=== PATIENT | female | born 1990 | race Caucasian/White ===

== ENCOUNTER 2021-04-18 13:17 | Inpatient (IN) ==
[2021-04-18] MEDS ORDERED: ONDANSETRON INJ 2 MG/ML 2 ML VIAL IV STA (13:47)
[2021-04-18] MEDS ORDERED: SODIUM CHLORIDE 0.9% 1000ML 2,000 ML IV ONE (13:47)
[2021-04-18 14:43] LABS: Basophils # (auto) 0.04 K/uL (0-0.2); Basophils % (auto) 0.4 %; Eosinophils # (auto) 0.14 K/uL (0-0.5); Eosinophils % (auto) 1.5 %; Hematocrit (blood only) 40.6 % (37-47); Hemoglobin 14.1 g/dL (12.0-16.0); Immature Granulocytes # (auto) 0.02 K/uL (0.00-0.02); Immature Granulocytes % (auto) 0.2 %; Lymphocytes % (auto) 14.8 %; Mean Corpuscular Hemoglobin 31.1 pg (25-34); Mean Corpuscular Hgb Conc 34.7 g/dL (32-36); Mean Corpuscular Volume 89.6 fL (80-100); Mean Platelet Volume 10.4 fL (7.4-10.4); Monocytes # (auto) 0.98 K/uL (0.11-0.59); Monocytes % (auto) 10.3 %; Neutrophils # (auto) 6.91 K/uL (1.4-6.5); Neutrophils % (auto) 72.8 %; Platelet Count 391 K/uL (130-400); RDW Coefficient of Variation 13.1 % (11.5-14.5); RDW Standard Deviation 42.8 fL (36.4-46.3); Red Blood Count 4.53 M/uL (4.2-5.4); White Blood Count 9.49 K/uL (4.8-10.8)
[2021-04-18 14:52] LABS: Appearance Urine Clear (Clear); Bacteria Urine Automated Negative (Negative); Blood Urine Negative (Negative); Cast Urine Automated 0 /lpf (0-5); Color Urine Dark Yellow; Epithelial Cell Urine Auto 0-5 /lpf (0-5); Glucose Urine UA Negative (Negative); Ketones Urine Trace (Negative); Leukocyte Esterase Urine Trace (Negative); Nitrite Urine Negative (Negative); Protein Urine Negative (Negative); Specific Gravity Urine 1.011 (1.000-1.030); Urobilinogen Urine Negative (Negative); WBC Urine Automated 0 /hpf (0-5)
[2021-04-18 15:03] LABS: Bilirubin Urine 3+ (Negative)
[2021-04-18 15:06] LABS: Pregnancy Test, Serum Negative (Negative)
[2021-04-18 15:26] LABS: Albumin Globulin Ratio 1.2 (0.9-2); Albumin Level 4.2 gm/dl (3.4-5.0); BUN Creatinine Ratio 7.7 (10-20); Bilirubin Direct 4.1 mg/dl (0-0.2); Bilirubin,Total 5.1 mg/dl (0.2-1); Calcium 8.8 mg/dl (8.5-10.1); Creatinine Clr Calc Pharmacy 116.1 ml/min; Est GFR (African American) 110.6 ml/min; Est GFR (Non-African American) 95.4 ml/min; Globulin 3.5 gm/dl (2.5-4.0); Potassium 3.8 mmol/L (3.5-5.1); Total Protein 7.7 gm/dl (6.4-8.2)
--- NOTE | 2021-04-18 16:18 | Ultrasound Report ---
ULTRASOUND RIGHT UPPER QUADRANT ABDOMEN CLINICAL HISTORY: Right upper quadrant abdominal pain. COMPARISON STUDY: No priors. TECHNIQUE: Real-time, grayscale, and color flow sonography of the right upper quadrant of the abdomen was performed. Images are reviewed in the transverse and longitudinal planes. FINDINGS: Liver: The liver is normal in size and echotexture. There is no intrahepatic biliary ductal dilatatio n. The main portal vein is patent. Gallbladder: There are small shadowing calcified gallstones. There is no gallbladder wall thickening or pericholecystic fluid. A sonographic Ordoñez's sign is reportedly absent. The common bile duct rolly ures up to 0.6 cm in diameter. Pancreas: Visualized portions of the pancreatic head and body are normal in appearance. The splenic v ein is patent. Right kidney: Survey images of the right kidney demonstrate normal size and echotexture. There is no hydronephrosis. Ascites: None. IMPRESSION: Cholelithiasis without sonographic evidence of acute cholecystitis. ACT 112: Negative or not required by law. Electronically signed by: Bk Pelletier M.D. 04/18/2021 4:17 PM
--- NOTE | 2021-04-18 17:10 | History & Physical Report ---
Date of Service April 18, 2021 Assessment & Plan (1) Choledocholithiasis: Plan: Choledocholithiasis - No leukocytosis - Afebrile. BP stable - Tbili 5.1, dbili 4.1 - AST 286, ALT 648, Alkphos 231 - Gallbladder US: Liver: The liver is normal in size and echotexture. There is no intrahepatic biliary ductal dilatation. The main portal vein is patent. Gallbladder: There are small shadowing calcified gallstones. There is no gallbladder wall thickening or pericholecystic fluid. A sonographic Ordoñez's sign is reportedly absent. The common bile duct measures up to 0.6 cm in diameter. Pancreas: Visualized portions of the pancreatic head and body are normal in appearance. The splenic vein is patent. - Cr wnl - Hcg negative - COVID negative - Gastro: Dr. Sanchez consulted, anticipate ERCP - Gen Surg: Ye consulted, anticipate cholecystectomy post ERCP N.p.o. with sips/chips Zofran as needed Hydromorphone scaled analgesia every 4 hours Ativan as needed every 4 hours for history of panic attacks worsened by current pain Gastrointestinal PPx ABX Cipro/Flagyl (2) Hyperbilirubinemia: Plan: 2/2 choledocholithiasis managed as otherwise noted (3) Jaundice: (4) Anxiety: Plan: Anxiety/panic attacks Patient was on p.o. Ativan as needed for panic attacks with daily sertraline Continue sertraline Ativan converted to IV (5) Endometriosis: Plan: Endometriosis Continue norethindrone 5 mg every morning Plan: DVT prophylaxis: Heparin subcu Diet: N.p.o. pending ERCP CODE STATUS: Full code Disposition: Medical/surgical History of Present Illness Chief Complaint: Right upper quadrant pain Primary Care Provider: PT DECLINED Sandra Saldivar is a 31yo F with a PMHx of anxiety/dep who presents with RUQ pain and who is admitted for management of cholelithiasis without evidence of cholecystitis. Sandra reports her pain initially began in December. Pain was intermittent and in the epigastric/right upper quadrant area and occasionally went through to her back. She was seen by gastroenterology in January and underwent an endoscopy/colonoscopy which was unremarkable. She reports her pain way for approximately 6 to 8 weeks, but returned intermittently in the last month and has been much worse since 3 days ago. She reports 3 days ago her pain jumped to an 11/10 sharp in quality with nausea and nonbloody nonbilious emesis. She denies fever, felt chills with waves of pain. She reports that she became concerned when Monday her urine changed from a normally clear color to a yellow bright orange color. She present to the hospital today when she noticed a change in her skin tone and slight yellowing in the eyes. She notes that fatty f oods have made her pain worse, she does not note remitting factors. She denies shortness of breath, chest pain, difficulty breathing. She has not noticed a change in her stool color, denies diarrhea. She has not had night sweats/chills. Medical History: Reviewed Surgical History: Reviewed Family History: Reviewed Allergies: Amoxicillin, rash Social History: Denies tobacco use. Endorses rare social alcohol use, denies recreational drug use. CODE STATUS: Full code Allergies Allergy/AdvReac Type Severity Reaction Status Date / Time amoxicillin Allergy Intermediate RASH Unverified 04/18/21 14:41 Home Medications Medication Instructions Recorded Confirmed Type clobetasol 0.05 % topical spray 1 applic TOPICAL BID PRN 04/18/21 04/18/21 History (Clobex) esomeprazole magnesium 20 mg 20 mg PO QAM 04/18/21 04/18/21 History capsule,delayed release (Nexium 24HR) lorazepam 0.5 mg tablet (Ativan) 0.5 mg SUBLINGUAL DAILY PRN 04/18/21 04/18/21 History norethindrone acetate 5 mg tablet 5 mg PO QAM 04/18/21 04/18/21 History (Aygestin) sertraline 50 mg tablet (Zoloft) 50 mg PO QAM 04/18/21 04/18/21 History Past Med/Surg History Medical History (Updated 04/18/21 @ 22:01 by Zi Pham MD) Anxiety GERD (gastroesophageal reflux disease) Family History Other Family history non-contributory Social History Smoking Status: Never smoker Feels Safe at Home: Yes Review of Systems Review of Systems: Constitutional: See HPI Eyes: Denies vision change, endorses yellowing of the eyes ENT: Denies ear pain, sore throat, sinus pain Cardiovascular: Denies Chest pain, chest pressure, palpitations, extremity swelling Respiratory: Denies shortness of breath, cough, sputum production, difficulty breathing Gastrointestinal: See HPI Genitourinary: Denies dysuria, urinary frequency Musculoskeletal: Denies acute focal weakness, muscle aches/pain, joint aches/pain Integumentary: Endorses yellowing of the skin Neurological: Denies headache, numbness, tingling, focal weakness Physical Exam Physical Exam: General: A&Ox3. NAD. Cooperative. HEENT: Atraumatic, normocephalic. Jaundice and mild scleral icterus is appreciated. Visual acuity and hearing grossly intact. EOMs intact without nystagmus. Pulm: CTAB A&P. -wheezes, -rales, -rhonchi. Symmetrical chest rise. No increase work of breathing. No respiratory distress. Cardiac: RRR, -mrg. Radial pulses intact and symmetrical. Abdominal: Tender to palpation at right upper quadrant. Abdomen otherwise nontender, soft, no rebound, nonrigid. Bowel sounds intact. Ext: RUE: 5/5 Shoulder internal rotation, external rotation, flexion, extension, abduction, adduction 5/5 Elbow flexion/extension, wrist flexion/extension 5/5 natural resource officer strength, finger flexion/extension, interosseus LUE: 5/5 Shoulder internal rotation, external rotation, flexion, extension, abduction, adduction 5/5 Elbow flexion/extension, wrist flexion/extension 5/5 natural resource officer strength, finger flexion/extension, interosseus RLE: 5/5 to hip flexion, ankle dorsiflexion/plantarflexion LLE: 5/5 to hip flexion, ankle dorsiflexion/plantarflexion SENSORY: Normal to touch in upper and lower extremities without deficit or asymmetry Results & Data Results & Data ([facility]) Vital Signs (Past 12 Hours) Vital Signs Temp Pulse Pulse Resp BP BP Pulse Ox 04/18/21 14:24 72 72 20 120/81 99 04/18/21 13:22 36.8 C 95 H 20 118/92 98 Laboratory Results Abnormal lab results 04/18/21 04/18/21 04/18/21 Range/Units 14:31 14:32 14:32 Neut # (Auto) 6.91 H (1.4-6.5) K/uL Barron # (Auto) 0.98 H (0.11-0.59) K/uL BUN 6 L (7-18) mg/dl BUN/Creatinine Ratio 7.7 L (10-20) Total Bilirubin 5.1 H (0.2-1) mg/dl Direct Bilirubin 4.1 H (0-0.2) mg/dl AST 286 H (15-37) U/L ALT 648 H (12-78) U/L Alkaline Phosphatase 231 H (45-117) U/L Urine Ketones Trace H (Negative) Urine Bilirubin 3+ H (Negative) Ur Leukocyte Esterase Trace H (Negative) Urine RBC (Auto) 5-10 H (0-4) /hpf Diagnostic Findings Gallbladder Ultrasound 04/18/21 13:45 ULTRASOUND RIGHT UPPER QUADRANT ABDOMEN CLINICAL HISTORY: Right upper quadrant abdominal pain. COMPARISON STUDY: No priors. TECHNIQUE: Real-time, grayscale, and color flow sonography of the right upper quadrant of the abdomen was performed. Images are reviewed in the transverse and longitudinal planes. FINDINGS: Liver: The liver is normal in size and echotexture. There is no intrahepatic biliary ductal dilatation. The main portal vein is patent. Gallbladder: There are small shadowing calcified gallstones. There is no gallbladder wall thickening or pericholecystic fluid. A sonographic Ordoñez's sign is reportedly absent. The common bile duct measures up to 0.6 cm in diameter. Pancreas: Visualized portions of the pancreatic head and body are normal in appearance. The splenic vein is patent. Right kidney: Survey images of the right kidney demonstrate normal size and echotexture. There is no hydronephrosis. Ascites: None. IMPRESSION: Cholelithiasis without sonographic evidence of acute cholecystitis. ACT 112: Negative or not required by law. Electronically signed by: Bk Pelletier M.D. 04/18/2021 4:17 PM Medications Administered Home Medications clobetasol 0.05 % topical spray (Clobex) 1 applic TOPICAL BID PRN 04/18/21 [History Confirmed 04/18/21] esomeprazole magnesium 20 mg capsule,delayed release (Nexium 24HR) 20 mg PO QAM 04/18/21 [History Confirmed 04/18/21] lorazepam 0.5 mg tablet (Ativan) 0.5 mg SUBLINGUAL DAILY PRN 04/18/21 [History Confirmed 04/18/21] norethindrone acetate 5 mg tablet (Aygestin) 5 mg PO QAM 04/18/21 [History Confirmed 04/18/21] sertraline 50 mg tablet (Zoloft) 50 mg PO QAM 04/18/21 [History Confirmed 04/18/21] Active Medications Acetaminophen (Acetaminophen 325 Mg Tab) 650 mg PO Q4H PRN PRN Reason: pain/fever Stop: 05/18/21 20:33 Heparin Sodium (Porcine) (Heparin Sod 5,000 Unit/0.5 Ml Vial) 5,000 units SQ Q12 SAMANTHA Stop: 05/18/21 20:59 Last Admin: 04/18/21 21:47 Dose: 5,000 units Documented by: Hydromorphone HCl (Hydromorphone Inj 0.5 Mg/0.5 Ml Syr) 0.5 mg IV Q4H PRN PRN Reason: Moderate Pain (4,5,6) on NRS Stop: 05/02/21 20:33 Hydromorphone HCl (Hydromorphone Inj 1 Mg/Ml Syringe) 1 mg IV Q4H PRN PRN Reason: Severe Pain (7,8,9,10) on NRS Stop: 05/02/21 20:33 Lorazepam (Ativan) 1 mg in 2 mls @ 2 mls/min IV Q4H PRN PRN Reason: anxiety/panic attacks Stop: 05/18/21 18:14 Last Admin: 04/18/21 18:25 Dose: 2 mls/min Documented by: Ciprofloxacin (Cipro / D5w) 400 mg in 200 mls @ 100 mls/hr IV Q12H [facility]; Protocol Stop: 04/20/21 20:59 Last Admin: 04/18/21 21:47 Dose: 100 mls/hr Documented by: Metronidazole (Flagyl) 500 mg in 100 mls @ 100 mls/hr IV Q8H SAMANTHA Stop: 04/20/21 20:59 Last Admin: 04/18/21 21:47 Dose: 100 mls/hr Documented by: Potassium Chloride 10 meq/ (Sodium Chloride) 1,005 mls @ 120 mls/hr IV .[id number] SAMANTHA Stop: 05/18/21 20:33 Norethindrone (Norethindrone 5 Mg Tab) 5 mg PO QAM [facility] Stop: 05/19/21 08:59 Ondansetron HCl (Ondansetron Inj 2 Mg/Ml 2 Ml Vial) 4 mg IV Q6H PRN PRN Reason: Nausea Stop: 05/18/21 20:33 Sertraline HCl (Sertraline Hcl 50 Mg Tablet) 50 mg PO QAM [facility] Stop: 05/19/21 08:59 PG Care Time/CCT Total # of Minutes Spent Total Time Spent with Patient: Total time spent is greater than 50% in coordination of care (as documented) at patient's floor/unit and/or counseling patient: Coding Level of Care Code 30596 Initial Inpt Care Lvl 3 Diagnoses Choledocholithiasis K80.50 Hyperbilirubinemia E80.6 Jaundice R17 Anxiety F41.9 Endometriosis N80.9
[2021-04-18] MEDS ORDERED: LORazepam 1 MG/2 ML VIAL IV PRN (18:15)
--- NOTE | 2021-04-18 19:36 | Emergency Department Note ---
Impression & Plan Choledocholithiasis, Hyperbilirubinemia, Jaundice ED Provider Note NAME: PALAK RHOADES AGE: 31 SEX: F ARRIVES VIA: Walk-In INFORMANT: Patient, ED PROVIDER(S): Christophe Anderson MD CHIEF COMPLAINT: Abdominal pain PLAN: Disposition: Admit MEDICAL DECISION MAKING: The patient is a pleasant 31-year-old woman with pmhx of GERD and Anxiety who presents to the emergency department for evaluation of worsening epigastric right upper quadrant pain that radiates to her back with associated nausea that she has had episodes of in the past and most recently in December but these episodes would be transient and not linger but over the past week her pain has initiated and persists and has gradually worsened. She reports she has followed with gastroenterology in the past for similar pain and had endoscopy and colonoscopies which were unremarkable. She did contact her GI office today and had an appointment arranged for this coming week but her pain became severe and so presented to urgent care who referred to the emergency department due to her symptoms and UA that demonstrated elevated bilirubin. Patient denies fevers, cough, congestion, chest pain, shortness of breath, diarrhea or burning with urination. On arrival the patient is uncomfortable no acute distress, afebrile stable vital signs. Her exam is notable for mild jaundice and scleral icterus which upon pointed out to the patient she did realize that her skin did indeed look yellow. She has epigastric and right upper quadrant abdominal pain with equivocal Ordoñez sign. She otherwise has no rebound or guarding. WBC, H/H and platelets within normal limits. Chemistry without metabolic aci dosis. LFTs are elevated with total bilirubin 5.1 and direct bilirubin 4.1 with AST and ALT 286 and 648, respectively. Alkaline phosphatase is 231. Lipase is not elevated. hCG was negative. UA without convincing evidence of infection but again shows 3+ bilirubin. COVID-19 PCR was negative. Formal [place] US with cholelithiasis without sonographic evidence of acute cholecystitis. CBD 6mm. I did discuss the case with GI on-call, Dr. Sanchez and confirmed we do have ERCP capability this week. Given the patient's degree of hyperbilirubinemia and gallbladder ultrasound with CBD of 6 mm no need for MRCP at this time and likely can proceed with ERCP in the morning. To be n.p.o. after midnight. Did update the patient at the bedside regarding plan for admission and she was in agreement. Case was discussed with Dr. Pham, [facility] hospitalist, who will evaluate the patient for admission. Triage Nursing notes reviewed and agree them. Prior medical records reviewed Vital Signs: reviewed and remarkable for no significant abnormalities Differential diagnosis: Appendicitis, ovarian cyst, ovarian torsion, ectopic , TOA, PID, infections, diverticulitis, UTI, obstruction, mesenteric ischemia, aortic pathology, inflammatory bowel disease, renal colic, PUD, pancreatitis, biliary pathology, hernia, volvulus, constipation, as well as other pathologies. ER treatment provided: See below. Diagnostics interpreted by me: Cardiac Monitoring: An order for continuous cardiac monitoring was placed and demonstrated NSR, 72 bpm, no ectopy. Laboratory studies: See below Imaging studies: See below Consultation(s): Dr. Sanchez, GI on-call Case was discussed with Dr. Pham, [facility] hospitalist, who will evaluate the patient for admission. HPI: The patient is a pleasant 31-year-old woman with pmhx of GERD and Anxiety who presents to the emergency department for evaluation of worsening epigastric right upper quadrant pain that radiates to her back with associated nausea that she has had episodes of in the past and most recently in December but these episodes would be transient and not linger but over the past week her pain has initiated and persists and has gradually worsened. She reports she has followed with gastroenterology in the past for similar pain and had endoscopy and colonoscopies which were unremarkable. She did contact her GI office today and had an appointment arranged for this coming week but her pain became severe and so presented to urgent care who referred to the emergency department due to her symptoms and UA that demonstrated elevated bilirubin. Patient denies fevers, cough, congestion, chest pain, shortness of breath, diarrhea or burning with urination. ROS: See above HPI for pertinent positives & negatives. A total of 10 systems reviewed and were otherwise negative. PAST MEDICAL HISTORY:See Below PAST SURGICAL HISTORY:See Below FAMILY HISTORY:See Below SOCIAL HISTORY:See Below HOME MEDICATIONS:See Below ALLERGIES:See Below VITALS:See Below PHYSICAL EXAMINATION: GENERAL: Awake, alert, uncomfortable-appearing, in no distress HENT: Normocephalic, atraumatic. Oropharynx with dry mucous membranes and otherwise unremarkable. EYES: Normal conjunctiva. Mild scleral icterus. NECK: Supple. No nuchal rigidity. FROM. No JVD. RESPIRATORY: Clear to auscultation. CARDIAC: Regular rate, normal rhythm. Extremities warm and well perfused. Pulses equal. ABDOMEN: Soft, non-distended. Moderate epigastric and right upper quadrant abdominal pain with equivocal Ordoñez sign. Otherwise, no rebound or guarding. No masses. RECTAL: Deferred. MUSCULOSKELETAL: Chest examination reveals no tenderness. The back is symmetrical on inspection without obvious abnormality. There is no CVA tenderness to palpation. No joint edema. LOWER EXTREMITIES: Calves are equal size bilaterally and non-tender. No edema. No discoloration. NEURO: Normal sensorium. No sensory or motor deficits noted. SKIN: No rash. Mild jaundice. Christophe Anderson MD Past Med/Surg History Medical History Anxiety GERD (gastroesophageal reflux disease) Family History Other Family history non-contributory Social History Smoking Status: Never smoker Feels Safe at Home: Yes Allergies Allergies Allergy/AdvReac Type Severity Reaction Status Date / Time amoxicillin Allergy Intermediate RASH Unverified 04/18/21 14:41 Home Meds Home Medications Medication Instructions Recorded Confirmed clobetasol 0.05 % topical spray 1 applic TOPICAL BID PRN 04/18/21 04/18/21 (Clobex) esomeprazole magnesium 20 mg 20 mg PO QAM 04/18/21 04/18/21 capsule,delayed release (Nexium 24HR) lorazepam 0.5 mg tablet (Ativan) 0.5 mg SUBLINGUAL DAILY PRN 04/18/21 04/18/21 norethindrone acetate 5 mg tablet 5 mg PO QAM 04/18/21 04/18/21 (Aygestin) sertraline 50 mg tablet (Zoloft) 50 mg PO QAM 04/18/21 04/18/21 Results & Data (ED) Vital Signs Vital Signs - 24 hr 04/18/21 13:22 04/18/21 14:24 04/18/21 14:29 Temperature 36.8 C Temperature Source Temporal Artery Scan Pulse Rate 95 H 72 64 Pulse Rate [Apical] 72 Pulse Rate from SpO2 Sensor 66 Respiratory Rate 20 20 18 Respiratory Effort / Characteristics Non-Labored Spontaneous Respiratory Depth Normal Respiratory Pattern Regular Blood Pressure 118/92 120/81 Blood Pressure [Right Arm] 120/81 Blood Pressure Mean 100 94 Blood Pressure Mean [Right Arm] 94 Blood Pressure Position Sitting Blood Pressure Position [Right Arm] Lying Pulse Oximetry 98 99 98 Oxygen Delivery Method Room Air Room Air Sepsis Recent Fever Within 48 Hours No Sepsis New/Unexplained Change in Mental Status No Sepsis Action Taken by Nursing No Action Required Laboratory Data Attestation: I reviewed the patient's lab results. Result diagrams: 04/18/21 14:32 04/18/21 14:32 Lab Results 04/18/21 04/18/21 04/18/21 Range/Units 14:31 14:31 14:31 WBC (4.8-10.8) K/uL RBC (4.2-5.4) M/uL Hgb (12.0-16.0) g/dL Hct (37-47) % MCV (80-100) fL MCH (25-34) pg MCHC (32-36) g/dL RDW Std Deviation (36.4-46.3) fL RDW Coeff of Beau (11.5-14.5) % Plt Count (130-400) K/uL MPV (7.4-10.4) fL Immature Gran % (Auto) % Neut % (Auto) % Lymph % (Auto) % [place] % (Auto) % Eos % (Auto) % Baso % (Auto) % Neut # (Auto) (1.4-6.5) K/uL Lymph # (Auto) (1.2-3.4) K/uL [place] # (Auto) (0.11-0.59) K/uL Eos # (Auto) (0-0.5) K/uL Baso # (Auto) (0-0.2) K/uL Immature Gran # (Auto) (0.00-0.02) K/uL Sodium (136-145) mmol/L Potassium (3.5-5.1) mmol/L Chloride (98-107) mmol/L Carbon Dioxide (21-32) mmol/L Anion Gap (3-11) BUN (7-18) mg/dl Creatinine (0.6-1.2) mg/dl Est Cr Clr Drug Dosing ml/min Est GFR ( Amer) ml/min Est GFR (Non-Af Amer) ml/min BUN/Creatinine Ratio (10-20) Glucose (70-99) mg/dl Calcium (8.5-10.1) mg/dl Total Bilirubin (0.2-1) mg/dl Direct Bilirubin (0-0.2) mg/dl AST (15-37) U/L ALT (12-78) U/L Alkaline Phosphatase (45-117) U/L Total Protein (6.4-8.2) gm/dl Albumin (3.4-5.0) gm/dl Globulin (2.5-4.0) gm/dl Albumin/Globulin Ratio (0.9-2) Lipase (73-393) U/L HCG, Qual (Negative) Urine Color Dark Yellow Urine Appearance Clear (Clear) Urine pH 6.0 (4.5-7.5) Ur Specific [place] 1.011 (1.000-1.030) Urine Protein Negative (Negative) Urine Glucose (UA) Negative (Negative) Urine Ketones Trace H (Negative) Urine Blood Negative (Negative) Urine Nitrite Negative (Negative) Urine Bilirubin 3+ H (Negative) Urine Urobilinogen Negative (Negative) Ur Leukocyte Esterase Trace H (Negative) Urine WBC (Auto) 0 (0-5) /hpf Urine RBC (Auto) 5-10 H (0-4) /hpf U Hyaline Cast (Auto) 0 (0-5) /lpf U Epithel Cells (Auto) 0-5 (0-5) /lpf Urine Bacteria (Auto) Negative (Negative) COVID-19 Eval Order Covid19 at [facility] SARS-CoV-2 (PCR) NEGATIVE (Negative) 04/18/21 04/18/21 04/18/21 Range/Units 14:32 14:32 14:32 WBC 9.49 (4.8-10.8) K/uL RBC 4.53 (4.2-5.4) M/uL Hgb 14.1 (12.0-16.0) g/dL Hct 40.6 (37-47) % MCV 89.6 (80-100) fL MCH 31.1 (25-34) pg MCHC 34.7 (32-36) g/dL RDW Std Deviation 42.8 (36.4-46.3) fL RDW Coeff of Beau 13.1 (11.5-14.5) % Plt Count 391 (130-400) K/uL MPV 10.4 (7.4-10.4) fL Immature Gran % (Auto) 0.2 % Neut % (Auto) 72.8 % Lymph % (Auto) 14.8 % [place] % (Auto) 10.3 % Eos % (Auto) 1.5 % Baso % (Auto) 0.4 % Neut # (Auto) 6.91 H (1.4-6.5) K/uL Lymph # (Auto) 1.40 (1.2-3.4) K/uL [place] # (Auto) 0.98 H (0.11-0.59) K/uL Eos # (Auto) 0.14 (0-0.5) K/uL Baso # (Auto) 0.04 (0-0.2) K/uL Immature Gran # (Auto) 0.02 (0.00-0.02) K/uL Sodium 139 (136-145) mmol/L Potassium 3.8 (3.5-5.1) mmol/L Chloride 106 (98-107) mmol/L Carbon Dioxide 23 (21-32) mmol/L Anion Gap 10.0 (3-11) BUN 6 L (7-18) mg/dl Creatinine 0.81 (0.6-1.2) mg/dl Est Cr Clr Drug Dosing 116.1 ml/min Est GFR ( Amer) 110.6 ml/min Est GFR (Non-Af Amer) 95.4 ml/min BUN/Creatinine Ratio 7.7 L (10-20) Glucose 97 (70-99) mg/dl Calcium 8.8 (8.5-10.1) mg/dl Total Bilirubin 5.1 H (0.2-1) mg/dl Direct Bilirubin 4.1 H (0-0.2) mg/dl AST 286 H (15-37) U/L ALT 648 H (12-78) U/L Alkaline Phosphatase 231 H (45-117) U/L Total Protein 7.7 (6.4-8.2) gm/dl Albumin 4.2 (3.4-5.0) gm/dl Globulin 3.5 (2.5-4.0) gm/dl Albumin/Globulin Ratio 1.2 (0.9-2) Lipase 127 (73-393) U/L HCG, Qual Negative (Negative) Urine Color Urine Appearance (Clear) Urine pH (4.5-7.5) Ur Specific [place] (1.000-1.030) Urine Protein (Negative) Urine Glucose (UA) (Negative) Urine Ketones (Negative) Urine Blood (Negative) Urine Nitrite (Negative) Urine Bilirubin (Negative) Urine Urobilinogen (Negative) Ur Leukocyte Esterase (Negative) Urine WBC (Auto) (0-5) /hpf Urine RBC (Auto) (0-4) /hpf U Hyaline Cast (Auto) (0-5) /lpf U Epithel Cells (Auto) (0-5) /lpf Urine Bacteria (Auto) (Negative) COVID-19 Eval Order SARS-CoV-2 (PCR) (Negative) Administered Medications Lorazepam (Ativan) 1 mg in 2 mls @ 2 mls/min IV Q4H PRN PRN Reason: anxiety/panic attacks Stop: 05/18/21 18:14 Last Admin: 04/18/21 18:25 Dose: 2 mls/min Documented by: [id number] Discontinued Medications Sodium Chloride (Nss 1000ml) 2,000 mls @ 999 mls/hr IV .Q2H1M ONE Stop: 04/18/21 15:47 Last Infusion: 04/18/21 16:36 Dose: 0 mls/hr Documented by: [id number] Admin: 04/18/21 14:36 Dose: 999 mls/hr Documented by: [id number] Ondansetron HCl (Ondansetron Inj 2 Mg/Ml 2 Ml Vial) 4 mg IV NOW STA Stop: 04/18/21 13:48 Last Admin: 04/18/21 14:36 Dose: 4 mg Documented by: [id number] Imaging Data Radiologist's Impression: Gallbladder Ultrasound 04/18/21 13:45 ULTRASOUND RIGHT UPPER QUADRANT ABDOMEN CLINICAL HISTORY: Right upper quadrant abdominal pain. COMPARISON STUDY: No priors. TECHNIQUE: Real-time, grayscale, and color flow sonography of the right upper quadrant of the abdomen was performed. Images are reviewed in the transverse and longitudinal planes. FINDINGS: Liver: The liver is normal in size and echotexture. There is no intrahepatic biliary ductal dilatation. The main portal vein is patent. Gallbladder: There are small shadowing calcified gallstones. There is no gallbladder wall thickening or pericholecystic fluid. A sonographic Ordoñez's sign is reportedly absent. The common bile duct measures up to 0.6 cm in diameter. Pancreas: Visualized portions of the pancreatic head and body are normal in appearance. The splenic vein is patent. Right kidney: Survey images of the right kidney demonstrate normal size and echotexture. There is no hydronephrosis. Ascites: None. IMPRESSION: Cholelithiasis without sonographic evidence of acute cholecystitis. ACT 112: Negative or not required by law. Electronically signed by: Bk Pelletier M.D. 04/18/2021 4:17 PM Discharge Plan Visit Data Chief Complaint: Abdominal Pain Stated Complaint: ABD PAIN,BACK PAIN,RUQ TENDERNESS ED Provider: Christophe Anderson Discharge Problem: Choledocholithiasis, Hyperbilirubinemia, Jaundice Patient Disposition: Admitted As Inpatient Discharge Instructions Interventions: ED Discharge Assessment Last Done: 04/18/21 20:37
[2021-04-18] MEDS ORDERED: ONDANSETRON INJ 2 MG/ML 2 ML VIAL IV PRN (20:34)
[2021-04-18] MEDS ORDERED: HYDROmorphone INJ 0.5 MG/0.5 ML SYR IV PRN (20:34)
[2021-04-18] MEDS ORDERED: ACETAMINOPHEN 325 MG TAB PO PRN (20:34)
[2021-04-18] MEDS ORDERED: HYDROmorphone INJ 1 MG/ML SYRINGE IV PRN (20:34)
[2021-04-18] MEDS: CIPROFLOXACIN / D5W 400 MG/200 ML BAG IV SCH (21:47)
[2021-04-18] MEDS: HEPARIN SOD 5,000 UNIT/0.5 ML VIAL SQ SCH (21:47)
[2021-04-18] MEDS: metroNIDAZOLE 500 MG/100 ML BAG IV SCH (21:47)
[2021-04-18] MEDS: POTASSIUM CHLORIDE 10 MEQ in SODIUM CHLORIDE 0.9% 1000ML 1,000 ML IV SCH (22:58)
[2021-04-19] MEDS: metroNIDAZOLE 500 MG/100 ML BAG IV SCH (05:56)
[2021-04-19] MEDS: POTASSIUM CHLORIDE 10 MEQ in SODIUM CHLORIDE 0.9% 1000ML 1,000 ML IV SCH ×3 (07:51→22:42)
--- NOTE | 2021-04-19 08:35 | Surgery Consultation ---
Date of Consultation April 19, 2021 Assessment & Plan (1) Hyperbilirubinemia: 31 year old female with 3 month history of intermittent abdominal pain presented to ED with severe epigastric and RUQ abdominal pain with associated nausea, vomiting, bloating, and jaundice. Ultrasound showing gallstones, no signs of acute cholecystitis, and dilated CBD at 0.6 cm. T. bili elevated at 5 and LFTS elevated likely representing choledocholithiasis. Abdomen is soft, mildly tender in RUQ and epigastrium on exam. Afebrile. Plan: Likely choledocholithiasis without cholecystitis given labs and ultrasound findings. Will await GI consult, will need ERCP Discussed cholecystectomy during admission given acute biliary obstruction. This will be determined on ERCP timing. Discussed laparoscopic approach, risks of procedure, expected recovery time and restrictions with patient. Keep npo Continue IV Fluids Pain management as needed Continue IV abx per medicine team I ( Giovanna Vega MD ) reviewed pt's H/P, las, ERCP, U/S with pt, I recommend to do laparoscopic cholecystectomy, possible open or cholangiogram, D/W benefits, risks and alternatives of the surgery, the risks - infection, bleeding, injury other organs, incisional hernia, pt understood, she agrees with surgery, I answered all questions, (2) Jaundice: Secondary to biliary obstruction (3) Cholelithiasis: No signs of acute cholecystitis on Ultrasound Plan as above Dr. Vgea has seen the patient and agrees with above. plan for laparoscopic cholecystectomy on 04/20/2021 will need to be NPO after midnight on 04/19/21 after ERCP History of Present Illness Reason for Consultation: Gallstones, Biliary obstruction Attending Physician: Elizabeth Marquez MD History of Present Illness Sandra is a 31 year-old female with history of anxiety and endometriosis who presented to ED yesterday with complaint of severe midline and RUQ abdominal pain. States she has had intermittent abdominal pain that started in December. Said pain would wake her up in the middle of the night with associated nausea, occasionally vomiting, and bloating. She had upper and lower endoscopy in January which was unremarkable. States the pain same pain woke her up evening and persisted. She noticed that her urine starting looking dark yellow and orange and presented to urgent care in which they sent her to ED for further evaluation. She had an ultrasound which showed gallstones with dilated CBD at 0.6 cm however no pericholecystic fluid or gallbladder wall thickening. Her labs showed no leukocytosis however t. bili elevated at 5 and lfts elevated. She states her pain is much improved at this time. She has not had nausea or vomiting since admission. Allergies Allergy/AdvReac Type Severity Reaction Status Date / Time amoxicillin Allergy Intermediate RASH Unverified 04/18/21 14:41 Home Medications Medication Instructions Recorded Confirmed Type clobetasol 0.05 % topical spray 1 applic TOPICAL BID PRN 04/18/21 04/18/21 History (Clobex) esomeprazole magnesium 20 mg 20 mg PO QAM 04/18/21 04/18/21 History capsule,delayed release (Nexium 24HR) lorazepam 0.5 mg tablet (Ativan) 0.5 mg SUBLINGUAL DAILY PRN 04/18/21 04/18/21 History norethindrone acetate 5 mg tablet 5 mg PO QAM 04/18/21 04/18/21 History (Aygestin) sertraline 50 mg tablet (Zoloft) 50 mg PO QAM 04/18/21 04/18/21 History Patient History Medical History Anxiety GERD (gastroesophageal reflux disease) Family History Other Family history non-contributory Social History Smoking Status: Never smoker Do You Dip or Chew Tobacco: No; Hx Alcohol Use: No Hx Substance Use: No Preferred Language: Bahamian Communication Ability: Effective Drapery Examiner Required: No Beliefs That Will Affect Care: None Current Living Situation: Spouse Other Information That Helps Us Care for You: No Feels Safe at Home: Yes Safety Concerns: Feels Safe At This Time Assistive Devices: Glasses Physical Exam Constitutional: WD/WN, vitals as above Eyes: mildly icteric sclerae Respiratory: normal respiratory effort, lungs clear to auscultation Cardiovascular: RRR, no murmur, no edema Gastrointestinal (Abdomen): Inspection/Auscultation: abdomen normal to inspection and normal bowel sounds; abdomen not distended Percussion/Pal pation: + abdomen tender (mild in RUQ and epigastrium) and abdomen soft; no guarding and abdomen not rigid Skin: no rashes, warm and dry Psychiatric: A+Ox3, euthymic affect Results & Data ([facility]) Vital Signs (Past 12 Hours) Vital Signs Temp Pulse Resp BP Pulse Ox 04/19/21 07:40 37.4 C 66 18 115/70 96 04/18/21 22:19 37.2 C 71 16 115/77 97 Laboratory Results 04/18/21 04/18/21 04/18/21 Range/Units 14:32 14:32 14:32 WBC 9.49 (4.8-10.8) K/uL RBC 4.53 (4.2-5.4) M/uL Hgb 14.1 (12.0-16.0) g/dL Hct 40.6 (37-47) % MCV 89.6 (80-100) fL MCH 31.1 (25-34) pg MCHC 34.7 (32-36) g/dL RDW Std Deviation 42.8 (36.4-46.3) fL RDW Coeff of Beau 13.1 (11.5-14.5) % Plt Count 391 (130-400) K/uL MPV 10.4 (7.4-10.4) fL Immature Gran % (Auto) 0.2 % Neut % (Auto) 72.8 % Lymph % (Auto) 14.8 % [place] % (Auto) 10.3 % Eos % (Auto) 1.5 % Baso % (Auto) 0.4 % Neut # (Auto) 6.91 H (1.4-6.5) K/uL Lymph # (Auto) 1.40 (1.2-3.4) K/uL [place] # (Auto) 0.98 H (0.11-0.59) K/uL Eos # (Auto) 0.14 (0-0.5) K/uL Baso # (Auto) 0.04 (0-0.2) K/uL Immature Gran # (Auto) 0.02 (0.00-0.02) K/uL Sodium 139 (136-145) mmol/L Potassium 3.8 (3.5-5.1) mmol/L Chloride 106 (98-107) mmol/L Carbon Dioxide 23 (21-32) mmol/L Anion Gap 10.0 (3-11) BUN 6 L (7-18) mg/dl Creatinine 0.81 (0.6-1.2) mg/dl Est Cr Clr Drug Dosing 116.1 ml/min Est GFR ( Amer) 110.6 ml/min Est GFR (Non-Af Amer) 95.4 ml/min BUN/Creatinine Ratio 7.7 L (10-20) Glucose 97 (70-99) mg/dl Calcium 8.8 (8.5-10.1) mg/dl Total Bilirubin 5.1 H (0.2-1) mg/dl Direct Bilirubin 4.1 H (0-0.2) mg/dl AST 286 H (15-37) U/L ALT 648 H (12-78) U/L Alkaline Phosphatase 231 H (45-117) U/L Total Protein 7.7 (6.4-8.2) gm/dl Albumin 4.2 (3.4-5.0) gm/dl Globulin 3.5 (2.5-4.0) gm/dl Albumin/Globulin Ratio 1.2 (0.9-2) Lipase 127 (73-393) U/L HCG, Qual Negative (Negative) Urine Color Urine Appearance (Clear) Urine pH (4.5-7.5) Ur Specific [place] (1.000-1.030) Urine Protein (Negative) Urine Glucose (UA) (Negative) Urine Ketones (Negative) Urine Blood (Negative) Urine Nitrite (Negative) Urine Bilirubin (Negative) Urine Urobilinogen (Negative) Ur Leukocyte Esterase (Negative) Urine WBC (Auto) (0-5) /hpf Urine RBC (Auto) (0-4) /hpf U Hyaline Cast (Auto) (0-5) /lpf U Epithel Cells (Auto) (0-5) /lpf Urine Bacteria (Auto) (Negative) COVID-19 Eval Order SARS-CoV-2 (PCR) (Negative) 04/18/21 04/18/21 04/18/21 Range/Units 14:31 14:31 14:31 WBC (4.8-10.8) K/uL RBC (4.2-5.4) M/uL Hgb (12.0-16.0) g/dL Hct (37-47) % MCV (80-100) fL MCH (25-34) pg MCHC (32-36) g/dL RDW Std Deviation (36.4-46.3) fL RDW Coeff of Beau (11.5-14.5) % Plt Count (130-400) K/uL MPV (7.4-10.4) fL Immature Gran % (Auto) % Neut % (Auto) % Lymph % (Auto) % [place] % (Auto) % Eos % (Auto) % Baso % (Auto) % Neut # (Auto) (1.4-6.5) K/uL Lymph # (Auto) (1.2-3.4) K/uL [place] # (Auto) (0.11-0.59) K/uL Eos # (Auto) (0-0.5) K/uL Baso # (Auto) (0-0.2) K/uL Immature Gran # (Auto) (0.00-0.02) K/uL Sodium (136-145) mmol/L Potassium (3.5-5.1) mmol/L Chloride (98-107) mmol/L Carbon Dioxide (21-32) mmol/L Anion Gap (3-11) BUN (7-18) mg/dl Creatinine (0.6-1.2) mg/dl Est Cr Clr Drug Dosing ml/min Est GFR ( Amer) ml/min Est GFR (Non-Af Amer) ml/min BUN/Creatinine Ratio (10-20) Glucose (70-99) mg/dl Calcium (8.5-10.1) mg/dl Total Bilirubin (0.2-1) mg/dl Direct Bilirubin (0-0.2) mg/dl AST (15-37) U/L ALT (12-78) U/L Alkaline Phosphatase (45-117) U/L Total Protein (6.4-8.2) gm/dl Albumin (3.4-5.0) gm/dl Globulin (2.5-4.0) gm/dl Albumin/Globulin Ratio (0.9-2) Lipase (73-393) U/L HCG, Qual (Negative) Urine Color Dark Yellow Urine Appearance Clear (Clear) Urine pH 6.0 (4.5-7.5) Ur Specific [place] 1.011 (1.000-1.030) Urine Protein Negative (Negative) Urine Glucose (UA) Negative (Negative) Urine Ketones Trace H (Negative) Urine Blood Negative (Negative) Urine Nitrite Negative (Negative) Urine Bilirubin 3+ H (Negative) Urine Urobilinogen Negative (Negative) Ur Leukocyte Esterase Trace H (Negative) Urine WBC (Auto) 0 (0-5) /hpf Urine RBC (Auto) 5-10 H (0-4) /hpf U Hyaline Cast (Auto) 0 (0-5) /lpf U Epithel Cells (Auto) 0-5 (0-5) /lpf Urine Bacteria (Auto) Negative (Negative) COVID-19 Eval Order Covid19 at [facility] SARS-CoV-2 (PCR) NEGATIVE (Negative) Diagnostic Findings ULTRASOUND RIGHT UPPER QUADRANT ABDOMEN CLINICAL HISTORY: Right upper quadrant abdominal pain. COMPARISON STUDY: No priors. TECHNIQUE: Real-time, grayscale, and color flow sonography of the right upper quadrant of the abdomen was performed. Images are reviewed in the transverse and longitudinal planes. FINDINGS: Liver: The liver is normal in size and echotexture. There is no intrahepatic biliary ductal dilatation. The main portal vein is patent. Gallbladder: There are small shadowing calcified gallstones. There is no gallbladder wall thickening or pericholecystic fluid. A sonographic Ordoñez's sign is reportedly absent. The common bile duct measures up to 0.6 cm in diameter. Pancreas: Visualized portions of the pancreatic head and body are normal in appearance. The splenic vein is patent. Right kidney: Survey images of the right kidney demonstrate normal size and echotexture. There is no hydronephrosis. Ascites: None. IMPRESSION: Cholelithiasis without sonographic evidence of acute cholecystitis.
[2021-04-19 08:43] LABS: Basophils # (auto) 0.03 K/uL (0-0.2); Basophils % (auto) 0.4 %; Eosinophils # (auto) 0.14 K/uL (0-0.5); Hemoglobin 12.9 g/dL (12.0-16.0); Immature Granulocytes # (auto) 0.01 K/uL (0.00-0.02); Immature Granulocytes % (auto) 0.1 %; Mean Corpuscular Hemoglobin 30.5 pg (25-34); Mean Corpuscular Hgb Conc 33.9 g/dL (32-36); Mean Corpuscular Volume 89.8 fL (80-100); Mean Platelet Volume 10.1 fL (7.4-10.4); Monocytes # (auto) 0.68 K/uL (0.11-0.59); Monocytes % (auto) 9.8 %; Neutrophils # (auto) 4.25 K/uL (1.4-6.5); Neutrophils % (auto) 61.7 %; Platelet Count 333 K/uL (130-400); RDW Coefficient of Variation 13.3 % (11.5-14.5); RDW Standard Deviation 43.8 fL (36.4-46.3); Red Blood Count 4.23 M/uL (4.2-5.4); White Blood Count 6.91 K/uL (4.8-10.8)
--- NOTE | 2021-04-19 09:07 | Gastrointestinal Consultation ---
Date of Consultation April 19, 2021 Assessment & Plan (1) Cholelithiasis: 31 year old female with episodic RUQ pain, nausea/vomiting most recent onset associated with scleral icterus, jaundice and dark urine, admitted w/ transaminitis, gallstones and CBD 6 mm concern for choledocho lithiasis NPO Plan for ERCP today with Dr. Merlyn TATE per general surgery Continue fluid, analgesia and antietmics PRN (2) Jaundice: History of Present Illness Reason for Consultation: ERCP Requesting Physician: Jimmy Attending Physician: Elizabeth Marquez MD History of Present Illness 31 year old female with anxiety who presents with abdominal pain - GI asked to evaluate for suspected retained biliary stones. Pt was seen and evaluated,chart reviewed. Notes symptoms in December, RUQ pain, nausea. Saw [facility]. Had EGD/Colonoscopy which she reports was normal. Notes she had symptoms for about a few weeks then they spontaneously resolved. Symptoms returned , worse than prior. Notes epigastric abd pain which radiates to her back associted with nausea and vomiting. Yeserday noted icterus and dark urine. No fever, chills, CP, SOb ABD US w/ gallstones and CBD 6 mm Allergies Allergy/AdvReac Type Severity Reaction Status Date / Time amoxicillin Allergy Intermediate RASH Unverified 04/18/21 14:41 Home Medications Medication Instructions Recorded Confirmed Type clobetasol 0.05 % topical spray 1 applic TOPICAL BID PRN 04/18/21 04/18/21 History (Clobex) esomeprazole magnesium 20 mg 20 mg PO QAM 04/18/21 04/18/21 History capsule,delayed release (Nexium 24HR) lorazepam 0.5 mg tablet (Ativan) 0.5 mg SUBLINGUAL DAILY PRN 04/18/21 04/18/21 History norethindrone acetate 5 mg tablet 5 mg PO QAM 04/18/21 04/18/21 History (Aygestin) sertraline 50 mg tablet (Zoloft) 50 mg PO QAM 04/18/21 04/18/21 History Patient History Medical History (Updated 04/19/21 @ 08:39 by Sandra Childress PA-C) Anxiety GERD (gastroesophageal reflux disease) Family History Other Family history non-contributory Social History Smoking Status: Never smoker Hx Alcohol Use: No Hx Substance Use: No Preferred Language: Uzbek Communication Ability: Effective Carriage Setter Required: No Beliefs That Will Affect Care: None Current Living Situation: Spouse Other Information That Helps Us Care for You: No Feels Safe at Home: Yes Safety Concerns: Feels Safe At This Time Assistive Devices: Glasses Review of Systems Review of Systems: All systems reviewed & are unremarkable except as noted in HPI & below Physical Exam Constitutional: WD/WN, vitals as above Eyes: + scleral icterus Respiratory: normal respiratory effort, lungs clear to auscultation Cardiovascular: RRR, no murmur, no edema Gastrointestinal (Abdomen): Inspection/Auscultation: abdomen normal to inspection and normal bowel sounds Percussion/Palpation: + abdomen tender and abdomen soft; no guarding, abdomen not rigid and no abdominal mass Skin: no rashes, warm and dry Results & Data ([facility]) Vital Signs (Past 12 Hours) Vital Signs Temp Pulse Resp BP Pulse Ox 04/19/21 07:40 37.4 C 66 18 115/70 96 04/18/21 22:19 37.2 C 71 16 115/77 97 Laboratory Results 04/19/21 04/19/21 04/18/21 Range/Units 08:32 08:32 14:32 WBC 6.91 (4.8-10.8) K/uL RBC 4.23 (4.2-5.4) M/uL Hgb 12.9 (12.0-16.0) g/dL Hct 38.0 (37-47) % MCV 89.8 (80-100) fL MCH 30.5 (25-34) pg MCHC 33.9 (32-36) g/dL RDW Std Deviation 43.8 (36.4-46.3) fL RDW Coeff of Beau 13.3 (11.5-14.5) % Plt Count 333 (130-400) K/uL MPV 10.1 (7.4-10.4) fL Immature Gran % (Auto) 0.1 % Neut % (Auto) 61.7 % Lymph % (Auto) 26.0 % Person % (Auto) 9.8 % Eos % (Auto) 2.0 % Baso % (Auto) 0.4 % Neut # (Auto) 4.25 (1.4-6.5) K/uL Lymph # (Auto) 1.80 (1.2-3.4) K/uL Person # (Auto) 0.68 H (0.11-0.59) K/uL Eos # (Auto) 0.14 (0-0.5) K/uL Baso # (Auto) 0.03 (0-0.2) K/uL Immature Gran # (Auto) 0.01 (0.00-0.02) K/uL Sodium Pending (136-145) mmol/L Potassium Pending (3.5-5.1) mmol/L Chloride Pending (98-107) mmol/L Carbon Dioxide Pending (21-32) mmol/L Anion Gap Pending (3-11) BUN Pending (7-18) mg/dl Creatinine Pending (0.6-1.2) mg/dl Est Cr Clr Drug Dosing Pending ml/min Est GFR ( Amer) Pending ml/min Est GFR (Non-Af Amer) Pending ml/min BUN/Creatinine Ratio Pending (10-20) Glucose Pending (70-99) mg/dl Calcium Pending (8.5-10.1) mg/dl Total Bilirubin Pending (0.2-1) mg/dl Direct Bilirubin (0-0.2) mg/dl AST Pending (15-37) U/L ALT Pending (12-78) U/L Alkaline Phosphatase Pending (45-117) U/L Total Protein Pending (6.4-8.2) gm/dl Albumin Pending (3.4-5.0) gm/dl Globulin Pending (2.5-4.0) gm/dl Albumin/Globulin Ratio Pending (0.9-2) Lipase (73-393) U/L HCG, Qual Negative (Negative) Urine Color Urine Appearance (Clear) Urine pH (4.5-7.5) Ur Specific [place] (1.000-1.030) Urine Protein (Negative) Urine Glucose (UA) (Negative) Urine Ketones (Negative) Urine Blood (Negative) Urine Nitrite (Negative) Urine Bilirubin (Negative) Urine Urobilinogen (Negative) Ur Leukocyte Esterase (Negative) Urine WBC (Auto) (0-5) /hpf Urine RBC (Auto) (0-4) /hpf U Hyaline Cast (Auto) (0-5) /lpf U Epithel Cells (Auto) (0-5) /lpf Urine Bacteria (Auto) (Negative) COVID-19 Eval Order SARS-CoV-2 (PCR) (Negative) 04/18/21 04/18/21 04/18/21 Range/Units 14:32 14:32 14:31 WBC 9.49 (4.8-10.8) K/uL RBC 4.53 (4.2-5.4) M/uL Hgb 14.1 (12.0-16.0) g/dL Hct 40.6 (37-47) % MCV 89.6 (80-100) fL MCH 31.1 (25-34) pg MCHC 34.7 (32-36) g/dL RDW Std Deviation 42.8 (36.4-46.3) fL RDW Coeff of Beau 13.1 (11.5-14.5) % Plt Count 391 (130-400) K/uL MPV 10.4 (7.4-10.4) fL Immature Gran % (Auto) 0.2 % Neut % (Auto) 72.8 % Lymph % (Auto) 14.8 % Person % (Auto) 10.3 % Eos % (Auto) 1.5 % Baso % (Auto) 0.4 % Neut # (Auto) 6.91 H (1.4-6.5) K/uL Lymph # (Auto) 1.40 (1.2-3.4) K/uL Person # (Auto) 0.98 H (0.11-0.59) K/uL Eos # (Auto) 0.14 (0-0.5) K/uL Baso # (Auto) 0.04 (0-0.2) K/uL Immature Gran # (Auto) 0.02 (0.00-0.02) K/uL Sodium 139 (136-145) mmol/L Potassium 3.8 (3.5-5.1) mmol/L Chloride 106 (98-107) mmol/L Carbon Dioxide 23 (21-32) mmol/L Anion Gap 10.0 (3-11) BUN 6 L (7-18) mg/dl Creatinine 0.81 (0.6-1.2) mg/dl Est Cr Clr Drug Dosing 116.1 ml/min Est GFR ( Amer) 110.6 ml/min Est GFR (Non-Af Amer) 95.4 ml/min BUN/Creatinine Ratio 7.7 L (10-20) Glucose 97 (70-99) mg/dl Calcium 8.8 (8.5-10.1) mg/dl Total Bilirubin 5.1 H (0.2-1) mg/dl Direct Bilirubin 4.1 H (0-0.2) mg/dl AST 286 H (15-37) U/L ALT 648 H (12-78) U/L Alkaline Phosphatase 231 H (45-117) U/L Total Protein 7.7 (6.4-8.2) gm/dl Albumin 4.2 (3.4-5.0) gm/dl Globulin 3.5 (2.5-4.0) gm/dl Albumin/Globulin Ratio 1.2 (0.9-2) Lipase 127 (73-393) U/L HCG, Qual (Negative) Urine Color Urine Appearance (Clear) Urine pH (4.5-7.5) Ur Specific [place] (1.000-1.030) Urine Protein (Negative) Urine Glucose (UA) (Negative) Urine Ketones (Negative) Urine Blood (Negative) Urine Nitrite (Negative) Urine Bilirubin (Negative) Urine Urobilinogen (Negative) Ur Leukocyte Esterase (Negative) Urine WBC (Auto) (0-5) /hpf Urine RBC (Auto) (0-4) /hpf U Hyaline Cast (Auto) (0-5) /lpf U Epithel Cells (Auto) (0-5) /lpf Urine Bacteria (Auto) (Negative) COVID-19 Eval Order SARS-CoV-2 (PCR) NEGATIVE (Negative) 04/18/21 04/18/21 Range/Units 14:31 14:31 WBC (4.8-10.8) K/uL RBC (4.2-5.4) M/uL Hgb (12.0-16.0) g/dL Hct (37-47) % MCV (80-100) fL MCH (25-34) pg MCHC (32-36) g/dL RDW Std Deviation (36.4-46.3) fL RDW Coeff of Beau (11.5-14.5) % Plt Count (130-400) K/uL MPV (7.4-10.4) fL Immature Gran % (Auto) % Neut % (Auto) % Lymph % (Auto) % Person % (Auto) % Eos % (Auto) % Baso % (Auto) % Neut # (Auto) (1.4-6.5) K/uL Lymph # (Auto) (1.2-3.4) K/uL Person # (Auto) (0.11-0.59) K/uL Eos # (Auto) (0-0.5) K/uL Baso # (Auto) (0-0.2) K/uL Immature Gran # (Auto) (0.00-0.02) K/uL Sodium (136-145) mmol/L Potassium (3.5-5.1) mmol/L Chloride (98-107) mmol/L Carbon Dioxide (21-32) mmol/L Anion Gap (3-11) BUN (7-18) mg/dl Creatinine (0.6-1.2) mg/dl Est Cr Clr Drug Dosing ml/min Est GFR ( Amer) ml/min Est GFR (Non-Af Amer) ml/min BUN/Creatinine Ratio (10-20) Glucose (70-99) mg/dl Calcium (8.5-10.1) mg/dl Total Bilirubin (0.2-1) mg/dl Direct Bilirubin (0-0.2) mg/dl AST (15-37) U/L ALT (12-78) U/L Alkaline Phosphatase (45-117) U/L Total Protein (6.4-8.2) gm/dl Albumin (3.4-5.0) gm/dl Globulin (2.5-4.0) gm/dl Albumin/Globulin Ratio (0.9-2) Lipase (73-393) U/L HCG, Qual (Negative) Urine Color Dark Yellow Urine Appearance Clear (Clear) Urine pH 6.0 (4.5-7.5) Ur Specific [place] 1.011 (1.000-1.030) Urine Protein Negative (Negative) Urine Glucose (UA) Negative (Negative) Urine Ketones Trace H (Negative) Urine Blood Negative (Negative) Urine Nitrite Negative (Negative) Urine Bilirubin 3+ H (Negative) Urine Urobilinogen Negative (Negative) Ur Leukocyte Esterase Trace H (Negative) Urine WBC (Auto) 0 (0-5) /hpf Urine RBC (Auto) 5-10 H (0-4) /hpf U Hyaline Cast (Auto) 0 (0-5) /lpf U Epithel Cells (Auto) 0-5 (0-5) /lpf Urine Bacteria (Auto) Negative (Negative) COVID-19 Eval Order Covid19 at [facility] SARS-CoV-2 (PCR) (Negative)
[2021-04-19 09:17] LABS: Albumin Level 3.7 gm/dl (3.4-5.0); BUN Creatinine Ratio 8.7 (10-20); Calcium 9.1 mg/dl (8.5-10.1); Creatinine Clr Calc Pharmacy 129.3 ml/min; Est GFR (African American) 125.4 ml/min; Est GFR (Non-African American) 108.2 ml/min; Potassium 4.2 mmol/L (3.5-5.1)
[2021-04-19 09:26] LABS: Albumin Globulin Ratio 1.1 (0.9-2); Globulin 3.4 gm/dl (2.5-4.0); Total Protein 7.1 gm/dl (6.4-8.2)
[2021-04-19] MEDS: HEPARIN SOD 5,000 UNIT/0.5 ML VIAL SQ SCH (10:20)
[2021-04-19] MEDS: SERTRALINE HCL 50 MG TABLET PO SCH (10:30)
[2021-04-19] MEDS: NORETHINDRONE 5 MG TAB PO SCH (10:30)
[2021-04-19] MEDS: CIPROFLOXACIN / D5W 400 MG/200 ML BAG IV SCH (10:30)
[2021-04-19] MEDS: ERTAPENEM SODIUM 1,000 MG in SODIUM CHLORIDE 0.9% 50 ML IV SCH (12:48)
[2021-04-19] MEDS: PANTOprazole 40 MG in SYRINGE 0 ML IV SCH (12:48)
[2021-04-19] MEDS ORDERED: MIDAZOLAM HCL 1 MG/ML 2ML VIAL ONE (13:40)
[2021-04-19] MEDS ORDERED: LIDOCAINE 2% 2 ML VIAL/AMP(20MG/ML) INFIL ONE (13:40)
[2021-04-19] MEDS ORDERED: ONDANSETRON INJ 2 MG/ML 2 ML VIAL ONE (13:40)
[2021-04-19] MEDS ORDERED: PROPOFOL IV EMULSION 10 MG/ML 20 ML VIAL IV ONE (13:40)
[2021-04-19] MEDS ORDERED: fentaNYL citrate 100 MCG/2 ML VIAL ONE (13:40)
--- NOTE | 2021-04-19 14:16 | Hospitalist Progress Note ---
Date of Service April 19, 2021 Assessment & Plan (1) Choledocholithiasis: Plan: Choledocholithiasis-with ongoing symptomatic cholelithiasis for 2 months, but presented with jaundice - No leukocytosis - Afebrile. BP stable - Tbili 5.1, dbili 4.1 and now trending downward - AST 286, ALT 648, Alk phos 231 and also now trending downward - Gallbladder US: Liver: The liver is normal in size and echotexture. There is no intrahepatic biliary ductal dilatation. The main portal vein is patent. Gallbladder: There are small shadowing calcified gallstones. There is no gallbladder wall thickening or pericholecystic fluid. A sonographic Ordoñez's sign is reportedly absent. The common bile duct measures up to 0.6 cm in diameter. Pancreas: Visualized portions of the pancreatic head and body are normal in appearance. The splenic vein is patent. - Cr wnl - Hcg negative - COVID negative - Gastro: plan for ERCP 04/19 - Gen Surg consulted, anticipate cholecystectomy post ERCP-planned for 04/20 N.p.o. with sips/chips for now but may have clears likely after ERCP later and then NPO after midnight for chloé tomorrow Zofran as needed Hydromorphone scaled analgesia every 4 hours Ativan as needed every 4 hours for history of panic attacks worsened by current pain Gastrointestinal PPx ABX -change to ertapenem due to pt request for fear of cipro SE -follow LFTs in AM and to resolution as outpt in 2 weeks -continue maintenance IVFs (2) Hyperbilirubinemia: Plan: 2/2 choledocholithiasis managed as otherwise noted-improving (3) Jaundice: Plan: as above (4) Anxiety: Plan: Anxiety/panic attacks Patient was on p.o. Ativan as needed for panic attacks with daily sertraline Continue sertraline Ativan converted to IV while npo (5) Endometriosis: Plan: Endometriosis Continue norethindrone 5 mg every morning (6) GERD (gastroesophageal reflux disease): Plan: hold hompo PPI and give IV Protonix 40mg once daily while NPO Plan: DVT prophylaxis: Heparin subcu Diet: N.p.o. pending ERCP CODE STATUS: Full code Disposition: Medical/surgical-continued stay Admission and Anticipated Discharge Date Admission Date: April 18, 2021 Subjective Pt says pain has improved since admission. No BM in many days which is normal for her. Was concerned about being on Cipro as she had a colleague recently get partially paralyzed after receiving Cipro for a UTI. Changed to ertapenem Discussed her care with Surgery. No CP, SOB. Reports one of her LFts was elevated in January and questions if this could be related to her norethindrone. Review of Systems Review of Systems: All systems reviewed & are unremarkable except as noted in HPI & below Physical Exam Constitutional: WD/WN, vitals as above Eyes: + anicteric sclerae Neck: trachea midline, no thyromegaly Respiratory: normal respiratory effort, lungs clear to auscultation Cardiovascular: RRR, no murmur, no edema Chest (Breasts): Chest: normal inspection of chest Gastrointestinal (Abdomen): normal bowel sounds, soft, nontender, no hep atosplenomegaly Musculoskeletal: Extremities: extremities normal to inspection; no cyanosis and no clubbing Skin: no rashes, warm and dry Neurologic: moves all extremities and awake; no focal motor deficits Psychiatric: A+Ox3, euthymic affect Lymphatic: no lymphedema Results & Data Results & Data ([facility]) Vital Signs (Past 12 Hours) Vital Signs Temp Pulse Resp BP Pulse Ox 04/19/21 07:40 37.4 C 66 18 115/70 96 Laboratory Results 04/19/21 04/19/21 04/18/21 Range/Units 08:32 08:32 14:32 WBC 6.91 (4.8-10.8) K/uL RBC 4.23 (4.2-5.4) M/uL Hgb 12.9 (12.0-16.0) g/dL Hct 38.0 (37-47) % MCV 89.8 (80-100) fL MCH 30.5 (25-34) pg MCHC 33.9 (32-36) g/dL RDW Std Deviation 43.8 (36.4-46.3) fL RDW Coeff of Beau 13.3 (11.5-14.5) % Plt Count 333 (130-400) K/uL MPV 10.1 (7.4-10.4) fL Immature Gran % (Auto) 0.1 % Neut % (Auto) 61.7 % Lymph % (Auto) 26.0 % [place] % (Auto) 9.8 % Eos % (Auto) 2.0 % Baso % (Auto) 0.4 % Neut # (Auto) 4.25 (1.4-6.5) K/uL Lymph # (Auto) 1.80 (1.2-3.4) K/uL [place] # (Auto) 0.68 H (0.11-0.59) K/uL Eos # (Auto) 0.14 (0-0.5) K/uL Baso # (Auto) 0.03 (0-0.2) K/uL Immature Gran # (Auto) 0.01 (0.00-0.02) K/uL Sodium 141 (136-145) mmol/L Potassium 4.2 (3.5-5.1) mmol/L Chloride 110 H (98-107) mmol/L Carbon Dioxide 21 (21-32) mmol/L Anion Gap 10.0 (3-11) BUN 6 L (7-18) mg/dl Creatinine 0.73 (0.6-1.2) mg/dl Est Cr Clr Drug Dosing 129.3 ml/min Est GFR ( Amer) 125.4 ml/min Est GFR (Non-Af Amer) 108.2 ml/min BUN/Creatinine Ratio 8.7 L (10-20) Glucose 85 (70-99) mg/dl Calcium 9.1 (8.5-10.1) mg/dl Total Bilirubin 3.0 H (0.2-1) mg/dl Direct Bilirubin (0-0.2) mg/dl AST 178 H (15-37) U/L ALT 526 H (12-78) U/L Alkaline Phosphatase 218 H (45-117) U/L Total Protein 7.1 (6.4-8.2) gm/dl Albumin 3.7 (3.4-5.0) gm/dl Globulin 3.4 (2.5-4.0) gm/dl Albumin/Globulin Ratio 1.1 (0.9-2) Lipase (73-393) U/L HCG, Qual Negative (Negative) Urine Color Urine Appearance (Clear) Urine pH (4.5-7.5) Ur Specific [place] (1.000-1.030) Urine Protein (Negative) Urine Glucose (UA) (Negative) Urine Ketones (Negative) Urine Blood (Negative) Urine Nitrite (Negative) Urine Bilirubin (Negative) Urine Urobilinogen (Negative) Ur Leukocyte Esterase (Negative) Urine WBC (Auto) (0-5) /hpf Urine RBC (Auto) (0-4) /hpf U Hyaline Cast (Auto) (0-5) /lpf U Epithel Cells (Auto) (0-5) /lpf Urine Bacteria (Auto) (Negative) COVID-19 Eval Order SARS-CoV-2 (PCR) (Negative) 04/18/21 04/18/21 04/18/21 Range/Units 14:32 14:32 14:31 WBC 9.49 (4.8-10.8) K/uL RBC 4.53 (4.2-5.4) M/uL Hgb 14.1 (12.0-16.0) g/dL Hct 40.6 (37-47) % MCV 89.6 (80-100) fL MCH 31.1 (25-34) pg MCHC 34.7 (32-36) g/dL RDW Std Deviation 42.8 (36.4-46.3) fL RDW Coeff of Beau 13.1 (11.5-14.5) % Plt Count 391 (130-400) K/uL MPV 10.4 (7.4-10.4) fL Immature Gran % (Auto) 0.2 % Neut % (Auto) 72.8 % Lymph % (Auto) 14.8 % [place] % (Auto) 10.3 % Eos % (Auto) 1.5 % Baso % (Auto) 0.4 % Neut # (Auto) 6.91 H (1.4-6.5) K/uL Lymph # (Auto) 1.40 (1.2-3.4) K/uL [place] # (Auto) 0.98 H (0.11-0.59) K/uL Eos # (Auto) 0.14 (0-0.5) K/uL Baso # (Auto) 0.04 (0-0.2) K/uL Immature Gran # (Auto) 0.02 (0.00-0.02) K/uL Sodium 139 (136-145) mmol/L Potassium 3.8 (3.5-5.1) mmol/L Chloride 106 (98-107) mmol/L Carbon Dioxide 23 (21-32) mmol/L Anion Gap 10.0 (3-11) BUN 6 L (7-18) mg/dl Creatinine 0.81 (0.6-1.2) mg/dl Est Cr Clr Drug Dosing 116.1 ml/min Est GFR ( Amer) 110.6 ml/min Est GFR (Non-Af Amer) 95.4 ml/min BUN/Creatinine Ratio 7.7 L (10-20) Glucose 97 (70-99) mg/dl Calcium 8.8 (8.5-10.1) mg/dl Total Bilirubin 5.1 H (0.2-1) mg/dl Direct Bilirubin 4.1 H (0-0.2) mg/dl AST 286 H (15-37) U/L ALT 648 H (12-78) U/L Alkaline Phosphatase 231 H (45-117) U/L Total Protein 7.7 (6.4-8.2) gm/dl Albumin 4.2 (3.4-5.0) gm/dl Globulin 3.5 (2.5-4.0) gm/dl Albumin/Globulin Ratio 1.2 (0.9-2) Lipase 127 (73-393) U/L HCG, Qual (Negative) Urine Color Urine Appearance (Clear) Urine pH (4.5-7.5) Ur Specific [place] (1.000-1.030) Urine Protein (Negative) Urine Glucose (UA) (Negative) Urine Ketones (Negative) Urine Blood (Negative) Urine Nitrite (Negative) Urine Bilirubin (Negative) Urine Urobilinogen (Negative) Ur Leukocyte Esterase (Negative) Urine WBC (Auto) (0-5) /hpf Urine RBC (Auto) (0-4) /hpf U Hyaline Cast (Auto) (0-5) /lpf U Epithel Cells (Auto) (0-5) /lpf Urine Bacteria (Auto) (Negative) COVID-19 Eval Order SARS-CoV-2 (PCR) NEGATIVE (Negative) 04/18/21 04/18/21 Range/Units 14:31 14:31 WBC (4.8-10.8) K/uL RBC (4.2-5.4) M/uL Hgb (12.0-16.0) g/dL Hct (37-47) % MCV (80-100) fL MCH (25-34) pg MCHC (32-36) g/dL RDW Std Deviation (36.4-46.3) fL RDW Coeff of Beau (11.5-14.5) % Plt Count (130-400) K/uL MPV (7.4-10.4) fL Immature Gran % (Auto) % Neut % (Auto) % Lymph % (Auto) % [place] % (Auto) % Eos % (Auto) % Baso % (Auto) % Neut # (Auto) (1.4-6.5) K/uL Lymph # (Auto) (1.2-3.4) K/uL [place] # (Auto) (0.11-0.59) K/uL Eos # (Auto) (0-0.5) K/uL Baso # (Auto) (0-0.2) K/uL Immature Gran # (Auto) (0.00-0.02) K/uL Sodium (136-145) mmol/L Potassium (3.5-5.1) mmol/L Chloride (98-107) mmol/L Carbon Dioxide (21-32) mmol/L Anion Gap (3-11) BUN (7-18) mg/dl Creatinine (0.6-1.2) mg/dl Est Cr Clr Drug Dosing ml/min Est GFR ( Amer) ml/min Est GFR (Non-Af Amer) ml/min BUN/Creatinine Ratio (10-20) Glucose (70-99) mg/dl Calcium (8.5-10.1) mg/dl Total Bilirubin (0.2-1) mg/dl Direct Bilirubin (0-0.2) mg/dl AST (15-37) U/L ALT (12-78) U/L Alkaline Phosphatase (45-117) U/L Total Protein (6.4-8.2) gm/dl Albumin (3.4-5.0) gm/dl Globulin (2.5-4.0) gm/dl Albumin/Globulin Ratio (0.9-2) Lipase (73-393) U/L HCG, Qual (Negative) Urine Color Dark Yellow Urine Appearance Clear (Clear) Urine pH 6.0 (4.5-7.5) Ur Specific [place] 1.011 (1.000-1.030) Urine Protein Negative (Negative) Urine Glucose (UA) Negative (Negative) Urine Ketones Trace H (Negative) Urine Blood Negative (Negative) Urine Nitrite Negative (Negative) Urine Bilirubin 3+ H (Negative) Urine Urobilinogen Negative (Negative) Ur Leukocyte Esterase Trace H (Negative) Urine WBC (Auto) 0 (0-5) /hpf Urine RBC (Auto) 5-10 H (0-4) /hpf U Hyaline Cast (Auto) 0 (0-5) /lpf U Epithel Cells (Auto) 0-5 (0-5) /lpf Urine Bacteria (Auto) Negative (Negative) COVID-19 Eval Order Covid19 at [facility] SARS-CoV-2 (PCR) (Negative) PG Care Time/CCT Total # of Minutes Spent Total Time Spent with Patient: Total time spent is greater than 50% in coordination of care (as documented) at patient's floor/unit and/or counseling patient: Coding Level of Care Code 29828 Subseq Hosp Care Lvl 2 Diagnoses Choledocholithiasis K80.50 Hyperbilirubinemia E80.6 Jaundice R17 Anxiety F41.9 Endometriosis N80.9 GERD (gastroesophageal reflux disease) K21.9
[2021-04-19] MEDS ORDERED: ePHEDrine sulfate 50 MG/ML AMP IV PRN (14:37)
[2021-04-19] MEDS ORDERED: HYDROmorphone INJ 1 MG/ML SYRINGE IV PRN (14:37)
[2021-04-19] MEDS ORDERED: ONDANSETRON INJ 2 MG/ML 2 ML VIAL IV PRN (14:37)
[2021-04-19] MEDS ORDERED: fentaNYL citrate 100 MCG/2 ML VIAL IV PRN (14:37)
[2021-04-19] MEDS ORDERED: ATROPINE SULFATE 0.1 MG/ML 10ML SYR IV PRN (14:37)
--- NOTE | 2021-04-19 14:41 | Anesthesiology Consultation ---
Date of Service April 19, 2021 Assessment & Plan (1) Encounter for pre-operative examination: Chart Review Chart Review: Acceptable Risk for Surgery and Patient NOT seen in Pre Admission Testing hcg neg. Consults Requested none History Surgery Operation Date: 04/19/21 07:00 Proposed Procedures p Endoscopic Retrograde Cholangiopancreatogram - Олег Zuleta MD Operation Date: 04/20/21 07:00 Proposed Procedures p Laparoscopic Cholecystectomy - Giovanna Vega MD Height/Weight Height: 5 ft 6 in Weight: 97.9 kg Allergies Allergy/AdvReac Type Severity Reaction Status Date / Time amoxicillin Allergy Intermediate RASH Unverified 04/18/21 14:41 Medications Home Medications Medication Instructions Recorded Confirmed Last Taken clobetasol 0.05 % topical spray 1 applic TOPICAL BID PRN 04/18/21 04/18/21 04/17/21 (Clobex) esomeprazole magnesium 20 mg 20 mg PO QAM 04/18/21 04/18/21 04/18/21 capsule,delayed release (Nexium 24HR) lorazepam 0.5 mg tablet (Ativan) 0.5 mg SUBLINGUAL DAILY PRN 04/18/21 04/18/21 Unknown norethindrone acetate 5 mg tablet 5 mg PO QAM 04/18/21 04/18/21 04/18/21 (Aygestin) sertraline 50 mg tablet (Zoloft) 50 mg PO QAM 04/18/21 04/18/21 04/18/21 Active Medications Generic Name Dose Route Start Last Admin Trade Name Freq PRN Reason Stop Dose Admin Heparin Sodium (Porcine) 5,000 units 04/18/21 21:00 04/19/21 10:20 Heparin Sod 5,000 Unit/0.5 Ml Vial SQ 05/18/21 20:59 Not Given Q12 SAMANTHA Lorazepam 1 mg in 2 mls @ 2 mls/min 04/18/21 18:15 04/18/21 18:25 Ativan IV 05/18/21 18:14 2 mls/min Q4H PRN Administration anxiety/panic attacks Potassium Chloride 10 meq/ 1,005 mls @ 120 mls/hr 04/18/21 21:30 04/19/21 07:51 Sodium Chloride IV 05/18/21 20:33 120 mls/hr .[id number] SAMANTHA Administration Pantoprazole Sodium 40 mg/ 10 mls @ 5 mls/min 04/19/21 11:30 04/19/21 12:48 Syringe IV 05/19/21 11:29 5 mls/min DAILY@1100 SAMANTHA Administration Ertapenem 1,000 mg/ Sodium 60 mls @ 100 mls/hr 04/19/21 12:00 04/19/21 13:25 Chloride IV 04/29/21 11:59 Infused Q24H SAMANTHA Infusion Norethindrone 5 mg 04/19/21 09:00 04/19/21 10:30 Norethindrone 5 Mg Tab PO 05/19/21 08:59 5 mg QAM SAMANTHA Administration Sertraline HCl 50 mg 04/19/21 09:00 04/19/21 10:30 Sertraline Hcl 50 Mg Tablet PO 05/19/21 08:59 50 mg QAM SAMANTHA Administration Past Medical History Medical History Anxiety GERD (gastroesophageal reflux disease) Exercise / Class Metabolic Activity II 4-5 Yardwork/Stairs/Walk up hill Past Family History Family History Other Family history non-contributory Past Surgical History papilloma removal posterior part of throat. 2014. no issues. Past Anesthesia History No Hx of Anesthesia Complications and No Family Hx of Anesthesia Complications History of PONV No Hx of PONV and No Hx of Motion Sickness Social History Smoking Status: Never smoker Do You Dip or Chew Tobacco: No Hx Alcohol Use: No alcohol intake frequency: holidays/special occasions only Hx Substance Use: No substance use type: does not use Physical Exam Vital Signs Last Vital Signs Temp 37.4 C 04/19/21 07:40 Pulse 66 04/19/21 07:40 Resp 18 04/19/21 07:40 BP 115/70 04/19/21 07:40 Pulse Ox 96 04/19/21 07:40 Testing Laboratory Results 04/19/21 08:32 04/19/21 08:32 Urine Color Dark Yellow 04/18/21 14:31 Urine Appearance Clear (Clear) 04/18/21 14:31 Urine pH 6.0 (4.5-7.5) 04/18/21 14:31 Ur Specific [place] 1.011 (1.000-1.030) 04/18/21 14:31 Urine Protein Negative (Negative) 04/18/21 14:31 Urine Glucose (UA) Negative (Negative) 04/18/21 14:31 Urine Ketones Trace (Negative) H 04/18/21 14:31 Urine Nitrite Negative (Negative) 04/18/21 14:31 Ur Leukocyte Esterase Trace (Negative) H 04/18/21 14:31 Urine WBC (Auto) 0 /hpf (0-5) 04/18/21 14:31 Urine RBC (Auto) 5-10 /hpf (0-4) H 04/18/21 14:31 U Hyaline Cast (Auto) 0 /lpf (0-5) 04/18/21 14:31 U Epithel Cells (Auto) 0-5 /lpf (0-5) 04/18/21 14:31 Urine Bacteria (Auto) Negative (Negative) 04/18/21 14:31
[2021-04-19] MEDS ORDERED: INDOMETHACIN 50 MG SUPP PR ONE (15:16)
--- NOTE | 2021-04-19 15:30 | History & Physical Bridge Note ---
Date of Service April 19, 2021 History & Physical Bridge Note I have examined the patient, reviewed the History & Physical and in the interval since the performance of the History & Physical I have noted the following changes of clinical significance: no changes note EUS/ERCP today Patient was explained in detail regarding risks, benefits, limitations and alternatives of the above endoscopic procedure. Risks of intravenous sedation used for procedure were also explained. Risks include, but not limited to p erforation, bleeding, infection, respiratory distress, cardiac arrest and . Patient is also aware about the possibility of missed lesion. Patient's questions were answered. The patient verbalized understanding the information and agreed to undergo the procedure.
[2021-04-19] MEDS ORDERED: DEXAMETHASONE SOD INJ 4 MG/ML VIAL ONE (16:03)
[2021-04-19] MEDS ORDERED: GLYCOPYRROLATE 0.2 MG/ML VIAL ONE (16:03)
--- NOTE | 2021-04-19 16:27 | Operative Report ---
Post Operative Report Pre & Post Diagnosis Operation Date: 04/19/21 07:00 Pre-Op Diagnosis: cholelithiasis, Post-Op Diagnosis: same, with biliary sludge Operation Date: 04/20/21 07:00 <No data on this case meets the specified criteria> I identified the patient and participated in the time-out.: Yes Procedure Operation Date: 04/19/21 07:00 Actual Procedures p Endoscopic Retrograde Cholangiopancreatogram, upper endoscopy/endoscopic ultrasound, sphincterotomy of ampula, balloon sweep(Not Applicable) - Олег Zuleta MD Operation Date: 04/20/21 07:00 <No data on this case meets the specified criteria> Surgeon Олег Zuleta MD Real Estate Subagent None Estimated Blood Loss 0 Findings See Below (CBD sludge removed) Specimens None Description of Procedure EUS/ERCP I attest to the content of the Intraoperative Record and any orders documented therein. Any exceptions are noted below.
--- NOTE | 2021-04-19 16:39 | Anesthesiology Progress Note ---
Date of Service April 19, 2021 Anesthesia Post Procedure Vital Signs Vital Signs: Temp Pulse Pulse Resp BP BP Pulse Ox 04/19/21 14:55 38.1 C H 86 18 119/71 98 04/19/21 07:40 37.4 C 66 18 115/70 96 04/18/21 22:19 37.2 C 71 16 115/77 97 04/18/21 20:23 36.8 C 83 16 117/82 97 04/18/21 19:09 72 20 120/81 98 Transfer of Care Handoff Completed per policy Notes Mental Status: alert / awake / arousable and participated in evaluation Patient Amnestic to Procedure: Yes Nausea / Vomiting: adequately controlled Pain: adequately controlled Airway Patency, RR, SpO2: stable & adequate BP & HR: stable & adequate Hydration State: stable & adequate Anesthetic Complications: no major complications apparent and Pt Satisfied with anesthetic care
--- NOTE | 2021-04-19 16:40 | GI REPORT ---
Patient Name: Sandra Saldivar Procedure Date: 04/19/2021 3:43 PM Date of : 1990 Admit Type: Inpatient Age: 31 Gender: Female Attending MD: Олег Zuleta MD Procedure: Upper GI endoscopy Providers: Олег Zuleta MD Referring MD: Cammy Fierro Md Indications: Abdominal pain Medicines: General Anesthesia Complications: No immediate complications. Estimated Blood Loss: Estimated blood loss: none. Procedure: Pre-Anesthesia Assessment: - Prior to the procedure, a History and Physical was performed, and patient medications, allergies and sensitivities were reviewed. The patient's tolerance of previous anesthesia was reviewed. - The risks and benefits of the procedure and the sedation options and risks were discussed with the patient. All questions were answered and informed consent was obtained. - Patient identification and proposed procedure were verified prior to the procedure by the physician and the nurse. The procedure was verified in the procedure room. - Pre-procedure physical examination revealed no contraindications to sedation. After obtaining informed consent, the endoscope was passed under direct vision. Throughout the procedure, the patient's blood pressure, pulse, and oxygen saturations were monitored continuously. The Scope was introduced through the mouth, and advanced to the second part of duodenum. The upper GI endoscopy was accomplished without difficulty. The patient tolerated the procedure well. Findings: A single area of ectopic gastric mucosa was found in the upper third of the esophagus. The examined esophagus was normal. The Z-line was regular and was found 40 cm from the incisors. The entire examined stomach was normal. The duodenal bulb and second portion of the duodenum were normal. Impression: - Ectopic gastric mucosa in the upper third of the esophagus. - Normal esophagus. - Normal stomach. - Normal duodenal bulb and second portion of the duodenum. - No specimens collected. Recommendation: - Perform an upper endoscopic ultrasound (UEUS) today. Олег Zuleta MD 04/19/2021 4:39:32 PM This report has been signed electronically. Note Initiated On: 04/19/2021 3:43 PM Number of Addenda: 0 I attest to the content of the Intraoperative Record and orders documented therein, exceptions below {[id number]}
--- NOTE | 2021-04-19 16:43 | GI REPORT ---
Patient Name: Sandra Saldivar Procedure Date: 04/19/2021 3:02 PM Date of : 1990 Admit Type: Inpatient Age: 31 Gender: Female Attending MD: Олег Zuleta MD Procedure: ERCP Providers: Олег Zuleta MD Referring MD: Elizabeth Marquez Md, Cammy Fierro Md Indications: Elevated liver enzymes, Biliary sludge Medicines: General Anesthesia Complications: No immediate complications. Estimated Blood Loss: Estimated blood loss: none. Procedure: Pre-Anesthesia Assessment: - Prior to the procedure, a History and Physical was performed, and patient medications, allergies and sensitivities were reviewed. The patient's tolerance of previous anesthesia was reviewed. - The risks and benefits of the procedure and the sedation options and risks were discussed with the patient. All questions were answered and informed consent was obtained. - Patient identification and proposed procedure were verified prior to the procedure by the physician and the nurse. The procedure was verified in the procedure room. - Pre-procedure physical examination revealed no contraindications to sedation. After obtaining informed consent, the scope was passed under direct vision. Throughout the procedure, the patient's blood pressure, pulse, and oxygen saturations were monitored continuously. The Scope was introduced through the mouth, and advanced to the duodenum and used to inject contrast into the bile duct. The ERCP was accomplished without difficulty. The patient tolerated the procedure well. Findings: The administrative support associate film was normal. The esophagus was successfully intubated under direct vision. The scope was advanced to a normal major papilla in the descending duodenum without detailed examination of the pharynx, larynx and associated structures, and upper GI tract. The upper GI tract was grossly normal. A 0.035 inch straight standard wire was passed into the biliary tree. The Fusion OMNI sphincterotome was passed over the guidewire and the bile duct was then deeply cannulated. Contrast was injected. I personally interpreted the bile duct images. Ductal flow of contrast was adequate. Image quality was adequate. Contrast extended to the main bile duct. Opacification of the entire biliary tree was successful. The maximum diameter of the ducts was 6 mm. Biliary sphincterotomy was made with a monofilament traction (standard) sphincterotome using ERBE electrocautery. There was no post-sphincterotomy bleeding. The biliary tree was swept with an 11.5 mm balloon starting at the bifurcation. Sludge was swept from the duct. Indomethacin 100 mg was given via suppository to decrease the risk of post-ERCP pancreatitis (PEP). PD was not cannulated. Impression: - A biliary sphincterotomy was performed. - The biliary tree was swept and sludge was found. Recommendation: - [facility]. - Proceed with Lap chloé. Олег Zuleta MD 04/19/2021 4:42:43 PM This report has been signed electronically. Note Initiated On: 04/19/2021 3:02 PM Number of Addenda: 0 I attest to the content of the Intraoperative Record and orders documented therein, exceptions below {[id number]}
--- NOTE | 2021-04-19 16:47 | GI REPORT ---
Patient Name: Sandra Saldivar Procedure Date: 04/19/2021 3:54 PM Date of : 1990 Admit Type: Inpatient Age: 31 Gender: Female Attending MD: Олег Zuleta MD Procedure: Upper EUS Providers: Олег Zuleta MD Referring MD: Cammy Fierro Md, Elizabeth Marquez Md Indications: Elevated liver enzymes, Suspected choledocholithiasis Medicines: General Anesthesia Complications: No immediate complications. Estimated Blood Loss: Estimated blood loss: none. Procedure: Pre-Anesthesia Assessment: - Prior to the procedure, a History and Physical was performed, and patient medications, allergies and sensitivities were reviewed. The patient's tolerance of previous anesthesia was reviewed. - The risks and benefits of the procedure and the sedation options and risks were discussed with the patient. All questions were answered and informed consent was obtained. - Patient identification and proposed procedure were verified prior to the procedure by the physician and the nurse. The procedure was verified in the procedure room. - Pre-procedure physical examination revealed no contraindications to sedation. After obtaining informed consent, the endoscope was passed under direct vision. Throughout the procedure, the patient's blood pressure, pulse, and oxygen saturations were monitored continuously. The scope was introduced through the mouth, and advanced to the second part of duodenum. The upper EUS was accomplished without difficulty. The patient tolerated the procedure well. Findings: ENDOSONOGRAPHIC FINDING: : There was no sign of significant endosonographic abnormality in the ampulla. No masses were identified. Moderate hyperechoic material consistent with sludge was visualized endosonographically in the common bile duct. The maximum diameter of the duct was 5 mm. The wall of the duct was mildly thickened. Many stones were visualized endosonographically in the gallbladder. They were hyperechoic and characterized by shadowing. There was no sign of significant endosonographic abnormality in the visualized portion of the liver. There was no sign of significant endosonographic abnormality in the entire pancreas. The pancreatic duct measured up to 2 mm in diameter. There was no sign of significant endosonographic abnormality in the visualized portion of the left adrenal gland. There was no sign of significant endosonographic abnormality involving the celiac trunk. Impression: - There was no sign of significant pathology in the ampulla. - Hyperechoic material consistent with sludge was visualized endosonographically in the common bile duct. - Many stones were visualized endosonographically in the gallbladder. - There was no evidence of significant pathology in the visualized portion of the liver. - There was no sign of significant pathology in the entire pancreas. - Endosonographic images of the left adrenal gland were unremarkable. - The celiac trunk was endosonographically normal. Recommendation: - Perform an ERCP today. Олег Zuleta MD 04/19/2021 4:46:48 PM This report has been signed electronically. Note Initiated On: 04/19/2021 3:54 PM Number of Addenda: 0 I attest to the content of the Intraoperative Record and orders documented therein, exceptions below {[id number]}
--- NOTE | 2021-04-19 18:37 | Fluoroscopy Report ---
[place] ERCP biliary ductal CLINICAL HISTORY: Duct exploration. COMPARISON STUDY: Abdominal ultrasound 04/18/2021. FLUOROSCOPY TIME: 40 seconds. FINDINGS: 10 fluoroscopic spot images of the right upper quadrant were submitted for review. The ampu lla was cannulated and contrast was injected into the common bile duct. A balloon sweep was performed . The common bile duct appears to be normal in course and caliber. IMPRESSION: Fluoroscopy provided for ERCP. ACT 112: Negative or not required by law. Electronically signed by: Mike Antunez M.D. 04/19/2021 6:36 PM
[2021-04-20] MEDS: POTASSIUM CHLORIDE 10 MEQ in SODIUM CHLORIDE 0.9% 1000ML 1,000 ML IV SCH ×2 (04:01→16:54)
[2021-04-20] MEDS ORDERED: CLINDAMYCIN 600 MG/54 ML BAG IV SCH (06:00)
[2021-04-20 07:21] LABS: Basophils # (auto) 0.01 K/uL (0-0.2); Basophils % (auto) 0.1 %; Hemoglobin 12.8 g/dL (12.0-16.0); Immature Granulocytes # (auto) 0.02 K/uL (0.00-0.02); Immature Granulocytes % (auto) 0.2 %; Lymphocytes # (auto) 1.04 K/uL (1.2-3.4); Mean Corpuscular Hgb Conc 33.7 g/dL (32-36); Mean Platelet Volume 10.4 fL (7.4-10.4); Monocytes # (auto) 0.52 K/uL (0.11-0.59); Monocytes % (auto) 4.5 %; Neutrophils # (auto) 9.97 K/uL (1.4-6.5); Neutrophils % (auto) 86.2 %; Platelet Count 374 K/uL (130-400); RDW Coefficient of Variation 13.2 % (11.5-14.5); RDW Standard Deviation 42.7 fL (36.4-46.3); Red Blood Count 4.27 M/uL (4.2-5.4); White Blood Count 11.56 K/uL (4.8-10.8)
[2021-04-20 07:46] LABS: Albumin Level 3.7 gm/dl (3.4-5.0); BUN Creatinine Ratio 11.8 (10-20); Creatinine Clr Calc Pharmacy 152.3 ml/min; Est GFR (African American) 137.3 ml/min; Est GFR (Non-African American) 118.5 ml/min; Potassium 4.3 mmol/L (3.5-5.1)
[2021-04-20 08:01] LABS: Albumin Globulin Ratio 1.1 (0.9-2); Bilirubin,Total 1.4 mg/dl (0.2-1); Globulin 3.5 gm/dl (2.5-4.0); Total Protein 7.2 gm/dl (6.4-8.2)
--- NOTE | 2021-04-20 08:29 | Gastroenterology Progress Note ---
Date of Service April 20, 2021 Assessment & Plan (1) Cholelithiasis: Plan: 31 year old female with episodic RUQ pain, nausea/vomiting most recent onset associated with scleral icterus, jaundice and dark urine, admitted w/ transaminitis, gallstones and CBD 6 mm concern for choledocholithiasis S/P EGD/EUS/ERCP w/ sphincterotomy and sweep with evidence of sludge to go for CCY today NPO for CCY Repeat LFTs today Continue fluid, analgesia and antietmics PRN Recall GI service as needed. Thank you for allowing us to participate in the care of this patient. Please call with any acute changes, questions or concerns. Please see addendum below with additional recommendation from my supervising physician. (2) Jaundice: Admission and Anticipated Discharge Date Admission Date: April 18, 2021 Subjective S/P ERCP yesterday. Notes feeling well this AM. She did have some back discomfort last evening which resolved with positional c hanges No upper abd pain, nausea, vomiting. Is NPO for CCY today EGD 2020: - Ectopic gastric mucosa in the upper third of the esophagus. - Normal esophagus. - Normal stomach. - Normal duodenal bulb and second portion of the duodenum. - No specimens collected. EUS 2020: There was no sign of significant pathology in the ampulla. - Hyperechoic material consistent with sludge was visualized endosonographically in the common bile duct. - Many stones were visualized endosonographically in the gallbladder. - There was no evidence of significant pathology in the visualized portion of the liver. - There was no sign of significant pathology in the entire pancreas. - Endosonographic images of the left adrenal gland were unremarkable. - The celiac trunk was endosonographically normal. ERCP 2020: A biliary sphincterotomy was performed. - The biliary tree was swept and sludge was found. Review of Systems Review of Systems: All systems reviewed & are unremarkable except as noted in HPI & below Physical Exam Gastrointestinal (Abdomen): normal bowel sounds, soft, nontender, no hepatosplenomegaly Results & Data ([facility]) Vital Signs (Past 12 Hours) Vital Signs Temp Pulse Resp BP Pulse Ox 04/20/21 07:18 36.5 C 112 H 16 111/76 96 04/20/21 06:15 36.8 C 84 20 105/69 97 04/20/21 02:48 36.8 C 70 16 112/71 96 04/19/21 23:13 36.4 C L 101 H 18 129/84 96 Laboratory Results 04/20/21 04/20/21 04/19/21 Range/Units 06:51 06:51 08:32 WBC 11.56 H (4.8-10.8) K/uL RBC 4.27 (4.2-5.4) M/uL Hgb 12.8 (12.0-16.0) g/dL Hct 38.0 (37-47) % MCV 89.0 (80-100) fL MCH 30.0 (25-34) pg MCHC 33.7 (32-36) g/dL RDW Std Deviation 42.7 (36.4-46.3) fL RDW Coeff of Beau 13.2 (11.5-14.5) % Plt Count 374 (130-400) K/uL MPV 10.4 (7.4-10.4) fL Immature Gran % (Auto) 0.2 % Neut % (Auto) 86.2 % Lymph % (Auto) 9.0 % [place] % (Auto) 4.5 % Eos % (Auto) 0.0 % Baso % (Auto) 0.1 % Neut # (Auto) 9.97 H (1.4-6.5) K/uL Lymph # (Auto) 1.04 L (1.2-3.4) K/uL [place] # (Auto) 0.52 (0.11-0.59) K/uL Eos # (Auto) 0.00 (0-0.5) K/uL Baso # (Auto) 0.01 (0-0.2) K/uL Immature Gran # (Auto) 0.02 (0.00-0.02) K/uL Sodium 140 141 (136-145) mmol/L Potassium 4.3 4.2 (3.5-5.1) mmol/L Chloride 109 H 110 H (98-107) mmol/L Carbon Dioxide 20 L 21 (21-32) mmol/L Anion Gap 11.0 10.0 (3-11) BUN 7 6 L (7-18) mg/dl Creatinine 0.62 0.73 (0.6-1.2) mg/dl Est Cr Clr Drug Dosing 152.3 129.3 ml/min Est GFR ( Amer) 137.3 125.4 ml/min Est GFR (Non-Af Amer) 118.5 108.2 ml/min BUN/Creatinine Ratio 11.8 8.7 L (10-20) Glucose 100 H 85 (70-99) mg/dl Calcium 9.0 9.1 (8.5-10.1) mg/dl Total Bilirubin 1.4 H D 3.0 H (0.2-1) mg/dl AST 128 H 178 H (15-37) U/L ALT 474 H 526 H (12-78) U/L Alkaline Phosphatase 206 H 218 H (45-117) U/L Total Protein 7.2 7.1 (6.4-8.2) gm/dl Albumin 3.7 3.7 (3.4-5.0) gm/dl Globulin 3.5 3.4 (2.5-4.0) gm/dl Albumin/Globulin Ratio 1.1 1.1 (0.9-2) 04/19/21 Range/Units 08:32 WBC 6.91 (4.8-10.8) K/uL RBC 4.23 (4.2-5.4) M/uL Hgb 12.9 (12.0-16.0) g/dL Hct 38.0 (37-47) % MCV 89.8 (80-100) fL MCH 30.5 (25-34) pg MCHC 33.9 (32-36) g/dL RDW Std Deviation 43.8 (36.4-46.3) fL RDW Coeff of Beau 13.3 (11.5-14.5) % Plt Count 333 (130-400) K/uL MPV 10.1 (7.4-10.4) fL Immature Gran % (Auto) 0.1 % Neut % (Auto) 61.7 % Lymph % (Auto) 26.0 % [place] % (Auto) 9.8 % Eos % (Auto) 2.0 % Baso % (Auto) 0.4 % Neut # (Auto) 4.25 (1.4-6.5) K/uL Lymph # (Auto) 1.80 (1.2-3.4) K/uL [place] # (Auto) 0.68 H (0.11-0.59) K/uL Eos # (Auto) 0.14 (0-0.5) K/uL Baso # (Auto) 0.03 (0-0.2) K/uL Immature Gran # (Auto) 0.01 (0.00-0.02) K/uL Sodium (136-145) mmol/L Potassium (3.5-5.1) mmol/L Chloride (98-107) mmol/L Carbon Dioxide (21-32) mmol/L Anion Gap (3-11) BUN (7-18) mg/dl Creatinine (0.6-1.2) mg/dl Est Cr Clr Drug Dosing ml/min Est GFR ( Amer) ml/min Est GFR (Non-Af Amer) ml/min BUN/Creatinine Ratio (10-20) Glucose (70-99) mg/dl Calcium (8.5-10.1) mg/dl Total Bilirubin (0.2-1) mg/dl AST (15-37) U/L ALT (12-78) U/L Alkaline Phosphatase (45-117) U/L Total Protein (6.4-8.2) gm/dl Albumin (3.4-5.0) gm/dl Globulin (2.5-4.0) gm/dl Albumin/Globulin Ratio (0.9-2)
[2021-04-20] MEDS: NORETHINDRONE 5 MG TAB PO SCH (10:27)
[2021-04-20] MEDS: PANTOprazole 40 MG in SYRINGE 0 ML IV SCH (10:27)
[2021-04-20] MEDS: SERTRALINE HCL 50 MG TABLET PO SCH (10:27)
[2021-04-20] MEDS: ERTAPENEM SODIUM 1,000 MG in SODIUM CHLORIDE 0.9% 50 ML IV SCH (12:23)
[2021-04-20] MEDS ORDERED: ONDANSETRON INJ 2 MG/ML 2 ML VIAL IV PRN (13:20)
[2021-04-20] MEDS ORDERED: ATROPINE SULFATE 0.1 MG/ML 10ML SYR IV PRN (13:20)
[2021-04-20] MEDS ORDERED: ePHEDrine sulfate 50 MG/ML AMP IV PRN (13:20)
[2021-04-20] MEDS ORDERED: NEOSTIGMINE METHYLSULFATE 1 MG/ML 10ML VIAL ONE (13:26)
[2021-04-20] MEDS ORDERED: GLYCOPYRROLATE 0.2 MG/ML VIAL ONE ×2 (13:26→14:19)
[2021-04-20] MEDS ORDERED: LIDOCAINE 2% 2 ML VIAL/AMP(20MG/ML) INFIL ONE (13:26)
[2021-04-20] MEDS ORDERED: PROPOFOL IV EMULSION 10 MG/ML 20 ML VIAL IV ONE (13:26)
[2021-04-20] MEDS ORDERED: ONDANSETRON INJ 2 MG/ML 2 ML VIAL ONE (13:26)
[2021-04-20] MEDS ORDERED: DEXAMETHASONE SOD INJ 4 MG/ML VIAL ONE (13:26)
[2021-04-20] MEDS ORDERED: MIDAZOLAM HCL 1 MG/ML 2ML VIAL ONE (13:27)
[2021-04-20] MEDS ORDERED: fentaNYL citrate 100 MCG/2 ML VIAL ONE ×2 (13:27)
[2021-04-20] MEDS ORDERED: SCOPOLAMINE 1 MG TDSY TD ONE (13:32)
--- NOTE | 2021-04-20 13:35 | Anesthesiology Consultation ---
Date of Service April 20, 2021 Assessment & Plan Chart Review Chart Review: Acceptable Risk for Surgery Consults Requested none ASA ASA2 Proposed Anesthesia Anesthesia Type: General Risk / Benefits Reviewed With: PT / POA / Parent / Guardian, Accepts Plan and Informed Consent Obtained History Surgery Operation Date: 04/19/21 07:00 Proposed Procedures p Endoscopic Retrograde Cholangiopancreatogram - Олег Zuleta MD Operation Date: 04/20/21 07:00 Proposed Procedures p Laparoscopic Cholecystectomy - Giovanna Vega MD Height/Weight Height: 5 ft 6 in Weight: 97.9 kg Allergies Allergy/AdvReac Type Severity Reaction Status Date / Time amoxicillin Allergy Intermediate RASH Unverified 04/18/21 14:41 Medications Home Medications Medication Instructions Recorded Confirmed Last Taken clobetasol 0.05 % topical spray 1 applic TOPICAL BID PRN 04/18/21 04/18/21 04/17/21 (Clobex) esomeprazole magnesium 20 mg 20 mg PO QAM 04/18/21 04/18/21 04/18/21 capsule,delayed release (Nexium 24HR) lorazepam 0.5 mg tablet (Ativan) 0.5 mg SUBLINGUAL DAILY PRN 04/18/21 04/18/21 Unknown norethindrone acetate 5 mg tablet 5 mg PO QAM 04/18/21 04/18/21 04/18/21 (Aygestin) sertraline 50 mg tablet (Zoloft) 50 mg PO QAM 04/18/21 04/18/21 04/18/21 Active Medications Generic Name Dose Route Start Last Admin Trade Name Freq PRN Reason Stop Dose Admin Heparin Sodium (Porcine) 5,000 units 04/18/21 21:00 04/19/21 10:20 Heparin Sod 5,000 Unit/0.5 Ml Vial SQ 05/18/21 20:59 Not Given Q12 SAMANTHA Lorazepam 1 mg in 2 mls @ 2 mls/min 04/18/21 18:15 04/18/21 18:25 Ativan IV 05/18/21 18:14 2 mls/min Q4H PRN Administration anxiety/panic attacks Potassium Chloride 10 meq/ 1,005 mls @ 120 mls/hr 04/18/21 21:30 04/20/21 07:13 Sodium Chloride IV 05/18/21 20:33 0 mls/hr .[id number] SAMANTHA Infusion Pantoprazole Sodium 40 mg/ 10 mls @ 5 mls/min 04/19/21 11:30 04/20/21 10:27 Syringe IV 05/19/21 11:29 5 mls/min DAILY@1100 SAMANTHA Administration Ertapenem 1,000 mg/ Sodium 60 mls @ 100 mls/hr 04/19/21 12:00 04/20/21 13:04 Chloride IV 04/29/21 11:59 Infused Q24H SAMANTHA Infusion Norethindrone 5 mg 04/19/21 09:00 04/20/21 10:27 Norethindrone 5 Mg Tab PO 05/19/21 08:59 5 mg QAM SAMANTHA Administration Sertraline HCl 50 mg 04/19/21 09:00 04/20/21 10:27 Sertraline Hcl 50 Mg Tablet PO 05/19/21 08:59 50 mg QAM SAMANTHA Administration NPO Date Last Intake of Fluids: 04/19/21 Time Last Intake of Fluids: 23:30 Last Intake of Fluids Comment: Sips this AM with Meds Date Last Intake of Solids: 04/17/21 Time Last Intake of Solids: 11:00 Last Intake of Solids Comment: Rikki Past Medical History Medical History Anxiety GERD (gastroesophageal reflux disease) Exercise / Class Metabolic Activity II 4-5 Yardwork/Stairs/Walk up hill Past Family History Family History Other Family history non-contributory Past Anesthesia History No Hx of Anesthesia Complications and No Family Hx of Anesthesia Complications History of PONV No Hx of PONV and No Hx of Motion Sickness Social History Smoking Status: Never smoker Do You Dip or Chew Tobacco: No Hx Alcohol Use: No alcohol intake frequency: holidays/special occasions only Hx Substance Use: No substance use type: does not use Physical Exam Vital Signs Last Vital Signs Temp 98.2 F 04/20/21 13:00 Pulse 98 H 04/20/21 13:00 Resp 18 04/20/21 13:00 BP 125/68 04/20/21 13:00 Pulse Ox 98 04/20/21 13:00 ENMT Mouth: no dentition abnormality Thyromental Distance: > or= 3.5 Finger Breadths Mallampati Class: II Neck normal visual inspection Respiratory normal respiratory effort Auscultation: lungs clear to auscultation bilaterally Cardiovascular Rate/Rhythm: regular rate and regular rhythm Testing Laboratory Results 04/20/21 06:51 04/20/21 06:51 Urine Color Dark Yellow 04/18/21 14:31 Urine Appearance Clear (Clear) 04/18/21 14:31 Urine pH 6.0 (4.5-7.5) 04/18/21 14:31 Ur Specific [place] 1.011 (1.000-1.030) 04/18/21 14:31 Urine Protein Negative (Negative) 04/18/21 14:31 Urine Glucose (UA) Negative (Negative) 04/18/21 14:31 Urine Ketones Trace (Negative) H 04/18/21 14:31 Urine Nitrite Negative (Negative) 04/18/21 14:31 Ur Leukocyte Esterase Trace (Negative) H 04/18/21 14:31 Urine WBC (Auto) 0 /hpf (0-5) 04/18/21 14:31 Urine RBC (Auto) 5-10 /hpf (0-4) H 04/18/21 14:31 U Hyaline Cast (Auto) 0 /lpf (0-5) 04/18/21 14:31 U Epithel Cells (Auto) 0-5 /lpf (0-5) 04/18/21 14:31 Urine Bacteria (Auto) Negative (Negative) 04/18/21 14:31
--- NOTE | 2021-04-20 13:45 | History & Physical Bridge Note ---
Date of Service April 20, 2021 History & Physical Bridge Note I have examined the patient, reviewed the History & Physical and in the interval since the performance of the History & Physical I have noted the following changes of clinical significance: no changes noted
[2021-04-20] MEDS ORDERED: CLINDAMYCIN 600 MG/54 ML D5W IV ONE (13:48)
[2021-04-20] MEDS ORDERED: BUPIVACAINE 0.5 % 5 MG/1 ML MPF 30ML VIAL ONE (13:59)
[2021-04-20] MEDS ORDERED: BACITRACIN OINT 15 GM TUBE ONE (13:59)
[2021-04-20] MEDS ORDERED: LIDOCAINE 1% LOCAL 20 ML VIAL ONE (13:59)
[2021-04-20] MEDS ORDERED: ROCURONIUM BROMIDE 10 MG/ML 5 ML VIAL IV ONE (14:33)
[2021-04-20] MEDS ORDERED: KETOROLAC 30 MG/ML VIAL ONE (15:24)
--- NOTE | 2021-04-20 15:42 | Post Operative Brief Note ---
Immediate Post Op Note v1 Date of Surgery April 20, 2021 Pre & Post Diagnosis Operation Date: 04/19/21 07:00 Pre-Op Diagnosis: cholelithiasis, acute cholectstitis Post-Op Diagnosis: same, Operation Date: 04/20/21 07:00 Pre-Op Diagnosis: CHOLELITHIASIS, acute cholecystitis Post-Op Diagnosis: CHOLELITHIASIS, acute cholecystitis I identified the patient and participated in the time-out.: Yes Procedure Operation Date: 04/19/21 07:00 Actual Procedures p Endoscopic Retrograde Cholangiopancreatogram, upper endoscopy/endoscopic ultrasound, sphincterotomy of ampula, balloon sweep(Not Applicable) - Олег Zuleta MD Operation Date: 04/20/21 07:00 Actual Procedures p Laparoscopic Cholecystectomy - Giovanna Vega MD Surgeon Giovanna Vega MD Criminology Teacher nursing surgical services director Estimated Blood Loss 20 Findings Consistent with Post-Op Diagnosis Fluids 900ml Specimens gallbladder Anesthesia Type General Complications none Disposition Accompanied Patient To Recovery: Yes
[2021-04-20] MEDS: fentaNYL citrate 100 MCG/2 ML VIAL IV PRN ×2 (16:07→16:12)
--- NOTE | 2021-04-20 17:22 | Anesthesiology Progress Note ---
Date of Service April 20, 2021 Anesthesia Post Procedure Vital Signs Vital Signs: Temp Pulse Pulse Resp BP BP Pulse Ox 04/20/21 17:18 36.7 C 72 16 109/71 92 04/20/21 16:40 36.8 C 75 18 111/68 92 04/20/21 16:25 36.4 C L 74 14 107/61 95 04/20/21 16:15 75 14 106/59 L 95 04/20/21 16:05 82 20 112/68 95 04/20/21 15:55 88 22 110/65 96 04/20/21 15:49 36.6 C 102 H 18 109/65 96 04/20/21 13:00 36.8 C 98 H 84 18 125/68 98 04/20/21 07:18 36.5 C 112 H 16 111/76 96 04/20/21 06:15 36.8 C 84 20 105/69 97 04/20/21 02:48 36.8 C 70 16 112/71 96 04/19/21 23:13 36.4 C L 101 H 18 129/84 96 04/19/21 20:09 36.6 C 81 20 113/74 92 04/19/21 19:14 36.3 C L 73 20 123/71 93 04/19/21 18:10 36.8 C 108 H 18 128/85 93 04/19/21 17:35 36.8 C 72 16 118/81 94 Pain Intensity Throat: Pain Intensity: 4 Abdomen: Pain Intensity: 2 Transfer of Care Handoff Completed per policy Notes Mental Status: alert / awake / arousable Patient Amnestic to Procedure: Yes Nausea / Vomiting: adequately controlled Pain: adequately controlled Airway Patency, RR, SpO2: stable & adequate BP & HR: stable & adequate Hydration State: stable & adequate Anesthetic Complications: no major complications apparent
--- NOTE | 2021-04-20 18:22 | Hospitalist Progress Note ---
Date of Service April 20, 2021 Assessment & Plan (1) Choledocholithiasis: Plan: Choledocholithiasis-with ongoing symptomatic cholelithiasis for 2 months, but presented with jaundice and abdominal pain - No leukocytosis initially but now mild at 11 - Afebrile. BP stable - Tbili 5.1, dbili 4.1 and now continues to be trending downward to 1.5 - AST 286, ALT 648, Alk phos 231 and also now trending downward - Gallbladder US: Liver: The liver is normal in size and echotexture. There is no intrahepatic biliary ductal dilatation. The main portal vein is patent. Gallbladder: There are small shadowing calcified gallstones. There is no gallbladder wall thickening or pericholecystic fluid. A sonographic Ordoñez's sign is reportedly absent. The common bile duct measures up to 0.6 cm in diameter. Pancreas: Visualized portions of the pancreatic head and body are normal in appearance. The splenic vein is patent. - Cr wnl - Hcg negative - COVID negative - Gastro: Now status post EGD/ERCP 04/19 with sweeping of sludge from the biliary tree and duct and biliary sphincterotomy. EGD with single area of ectopic gastric mucosa in the upper third of esophagus, otherwise normal-no biopsies collected - Gen Surg consultation appreciated-now status post cholecystectomy on 04/20 diet -advance to clear liquids postop and advance as tolerated as per surgery -Continue IV fluids until taking adequate p.o. but will reduce to 75 mL/HR Zofran as needed Hydromorphone as needed for pain and will add on oxycodone p.o. as needed Gastrointestinal PPx ABX continue ertapenem through tomorrow but can discontinue on discharge -Follow CBC in the morning -follow LFTs in AM and to resolution as outpt in 2 weeks (2) Hyperbilirubinemia: Plan: 2/2 choledocholithiasis managed as otherwise noted-improving (3) Jaundice: Plan: as above (4) Anxiety: Plan: Anxiety/panic attacks Patient was on p.o. Ativan as needed for panic attacks with daily sertraline Continue sertraline Ativan converted to IV while npo but will now revert back to p.o. (5) Endometriosis: Plan: Endometriosis Continue norethindrone 5 mg every morning (6) GERD (gastroesophageal reflux disease): Plan: Discontinue IV Protonix 40mg once daily and convert to Protonix 40 mg p.o. once daily now that she is tolerating p.o. Plan: DVT prophylaxis: Heparin subcu, SCDs CODE STATUS: Full code Disposition: Medical/surgical-continued stay, but hopeful for discharge to home tomorrow if continues to do well postoperatively Admission and Anticipated Discharge Date Admission Date: April 18, 2021 Subjective Pt just returned from cholecystectomy. Feeling some abdominal discomfort but not severe. Had some sips of water. Review of Systems Review of Systems: All systems reviewed & are unremarkable except as noted in HPI & below Physical Exam Constitutional: WD/WN, vitals as above Eyes: + anicteric sclerae Neck: trachea midline, no thyromegaly Respiratory: normal respiratory effort, lungs clear to auscultation Cardiovascular: RRR, no murmur, no edema Chest (Breasts): Chest: normal inspection of chest Gastrointestinal (Abdomen): Inspection/Auscultation: + abdomen abnormal to inspection (multiple incision sites with dressing sin place, scant dried blood) Percussion/Palpation: + abdomen tender (mild at incision sites) and abdomen soft; no guarding Musculoskeletal: Extremities: extremities normal to inspection; no cyanosis and no clubbing Skin: no rashes, warm and dry Neurologic: moves all extremities and awake; no focal motor deficits Psychiatric: A+Ox3, euthymic affect Lymphatic: no lymphedema Results & Data Results & Data ([facility]) Vital Signs (Past 12 Hours) Vital Signs Temp Pulse Pulse Resp BP BP Pulse Ox 04/20/21 17:18 36.7 C 72 16 109/71 92 04/20/21 16:40 36.8 C 75 18 111/68 92 04/20/21 16:25 36.4 C L 74 14 107/61 95 04/20/21 16:15 75 14 106/59 L 95 04/20/21 16:05 82 20 112/68 95 04/20/21 15:55 88 22 110/65 96 04/20/21 15:49 36.6 C 102 H 18 109/65 96 04/20/21 13:00 36.8 C 98 H 84 18 125/68 98 04/20/21 07:18 36.5 C 112 H 16 111/76 96 Laboratory Results 04/20/21 04/20/21 Range/Units 06:51 06:51 WBC 11.56 H (4.8-10.8) K/uL RBC 4.27 (4.2-5.4) M/uL Hgb 12.8 (12.0-16.0) g/dL Hct 38.0 (37-47) % MCV 89.0 (80-100) fL MCH 30.0 (25-34) pg MCHC 33.7 (32-36) g/dL RDW Std Deviation 42.7 (36.4-46.3) fL RDW Coeff of Beau 13.2 (11.5-14.5) % Plt Count 374 (130-400) K/uL MPV 10.4 (7.4-10.4) fL Immature Gran % (Auto) 0.2 % Neut % (Auto) 86.2 % Lymph % (Auto) 9.0 % [place] % (Auto) 4.5 % Eos % (Auto) 0.0 % Baso % (Auto) 0.1 % Neut # (Auto) 9.97 H (1.4-6.5) K/uL Lymph # (Auto) 1.04 L (1.2-3.4) K/uL [place] # (Auto) 0.52 (0.11-0.59) K/uL Eos # (Auto) 0.00 (0-0.5) K/uL Baso # (Auto) 0.01 (0-0.2) K/uL Immature Gran # (Auto) 0.02 (0.00-0.02) K/uL Sodium 140 (136-145) mmol/L Potassium 4.3 (3.5-5.1) mmol/L Chloride 109 H (98-107) mmol/L Carbon Dioxide 20 L (21-32) mmol/L Anion Gap 11.0 (3-11) BUN 7 (7-18) mg/dl Creatinine 0.62 (0.6-1.2) mg/dl Est Cr Clr Drug Dosing 152.3 ml/min Est GFR ( Amer) 137.3 ml/min Est GFR (Non-Af Amer) 118.5 ml/min BUN/Creatinine Ratio 11.8 (10-20) Glucose 100 H (70-99) mg/dl Calcium 9.0 (8.5-10.1) mg/dl Total Bilirubin 1.4 H D (0.2-1) mg/dl AST 128 H (15-37) U/L ALT 474 H (12-78) U/L Alkaline Phosphatase 206 H (45-117) U/L Total Protein 7.2 (6.4-8.2) gm/dl Albumin 3.7 (3.4-5.0) gm/dl Globulin 3.5 (2.5-4.0) gm/dl Albumin/Globulin Ratio 1.1 (0.9-2) PG Care Time/CCT Total # of Minutes Spent Total Time Spent with Patient: Total time spent is greater than 50% in coordination of care (as documented) at patient's floor/unit and/or counseling patient: Coding Level of Care Code 61682 Subseq Hosp Care Lvl 2 Diagnoses Choledocholithiasis K80.50 Hyperbilirubinemia E80.6 Jaundice R17 Anxiety F41.9 Endometriosis N80.9 GERD (gastroesophageal reflux disease) K21.9
[2021-04-20] MEDS ORDERED: LORazepam 0.5 MG TAB SL PRN (18:24)
[2021-04-20] MEDS ORDERED: oxyCODONE HCL IR 5 MG TAB (IMMEDIATE RELEASE) PO PRN (18:39)
[2021-04-20] MEDS: HEPARIN SOD 5,000 UNIT/0.5 ML VIAL SQ SCH (22:18)
--- NOTE | 2021-04-20 22:33 | Operative Report (OR) ---
DATE OF PROCEDURE: 04/20/2021. PREOPERATIVE DIAGNOSES: Acute cholecystitis, cholelithiasis. POSTOPERATIVE DIAGNOSES: Acute cholecystitis, cholelithiasis. OPERATION: Laparoscopic cholecystectomy. SURGEON: Giovanna Vega MD ANESTHESIA: General. ESTIMATED BLOOD LOSS: About 20 mL. COMPLICATIONS: None. INDICATIONS FOR THE PROCEDURE: This is a 31-year-old female who was admitted to the hospital for acu te cholecystitis with cholelithiasis. The patient had an ERCP done to remove the common bile duct st one and I recommended to do laparoscopic cholecystectomy, possible open, possible cholangiogram. I d id talk to the patient about the benefits, risks, alternative procedures. I indicated the risks may include, but not limited, such as bleeding, infection, injury to other organs, incisional hernia. Th e patient understands and she signed informed consent and I answered all questions. DETAILS OF PROCEDURE: We brought in the patient to the OR, put the patient in the supine position. After we identified the patient and verified the procedure, the patient received SCDs on bilateral le gs to prevent DVT. Also, the patient received 2 grams Ancef IV for prophylactic antibiotic. The pat ient received general anesthesia without difficulty. The abdomen was prepped and draped in routine s terile fashion. After timeout, I injected the local anesthesia by using 1% lidocaine mixed with 0.5% Marcaine just above the umbilicus. Then I made a small incision just above the umbilicus, opened fa scia, opened peritoneum under direct vision, put a Rachel trocar in, connected to CO2 to create pneum operitoneum, flow rate is 6 liters per minute, pressure not more than 14 mmHg. Once we got a nice pn eumoperitoneum, we put the camera in, looked around the abdomen. It showed normal finding of the anjum er. However, the gallbladder showed chronic cholecystitis with gallbladder wall thickening and edema . Once we confirmed the diagnosis, we put another two 5 mm trocars on the right upper quadrant, one 12 trocar on the epigastric area. Once all trocars in, we used the grasper to hold the base of gallb ladder, put direction to the diaphragm, another grasper to hold the pouch of gallbladder, put a later al to expunge the triangle of Calot. The cystic duct was identified and mobilized. Then we put two 10 mm metal clips on the proximal cystic duct, one on the distal cystic duct. Then I used a scissor for transection of cystic duct. The cystic artery was identified and mobilized and put two 5 mm meta l clips on the proximal cystic artery and one on the distal cystic artery. We used scissors for soler section of cystic artery, rechecked, no active bleeding. Then, we used the Bovie to take down gallbl adder from liver bed. Rechecked, no active bleeding, no bile leak on the liver bed. Then, we remove d gallbladder through the catch bag. Then, we reinserted the Rachel trocar in, connected to CO2 to create pneumoperitoneum, again looked a round the abdomen, no active bleeding, no bile leak from liver bed. Then, we removed all trocars und er direct vision. No active bleeding from the trocar site. Pneumoperitoneum was released. Then I c losed the umbilical incision fascial layer by using 0 Vicryl [id number] x2, closed subcutaneous layer by using 2-0 Vicryl interruptedly, closed skin by using 4-0 Vicryl continuous running, closed a nother 12 trocar incision fascial layer by using 3-0 Vicryl [id number] x2, closed subcutaneous l prosper by using 2-0 Vicryl interruptedly, closed skin by using 4-0 Vicryl interruptedly, closed another 5 mm trocar site of skin only by using 4-0 Vicryl. Then we put the dressing on. The patient tolera luis the procedure well. All instrument, needle and sponge counts were correct x2 at the end of the c ase. The patient was transferred to recovery room in stable condition. The specimen was sent to dylan rossi. After the procedure, I did talk to the patient about the OR finding and the procedure we did , the patient understands. Job ID: [id number]
[2021-04-21] MEDS: POTASSIUM CHLORIDE 10 MEQ in SODIUM CHLORIDE 0.9% 1000ML 1,000 ML IV SCH (03:21)
[2021-04-21 07:51] LABS: Hematocrit (blood only) 34.7 % (37-47); Hemoglobin 11.6 g/dL (12.0-16.0); Immature Granulocytes # (auto) 0.04 K/uL (0.00-0.02); Immature Granulocytes % (auto) 0.3 %; Lymphocytes # (auto) 1.49 K/uL (1.2-3.4); Mean Corpuscular Hemoglobin 30.4 pg (25-34); Mean Corpuscular Hgb Conc 33.4 g/dL (32-36); Mean Corpuscular Volume 90.8 fL (80-100); Mean Platelet Volume 10.6 fL (7.4-10.4); Monocytes % (auto) 8.9 %; Neutrophils # (auto) 10.77 K/uL (1.4-6.5); Neutrophils % (auto) 79.8 %; Platelet Count 314 K/uL (130-400); RDW Coefficient of Variation 13.7 % (11.5-14.5); RDW Standard Deviation 45.1 fL (36.4-46.3); Red Blood Count 3.82 M/uL (4.2-5.4)
[2021-04-21 08:30] LABS: Albumin Level 3.4 gm/dl (3.4-5.0); BUN Creatinine Ratio 17.9 (10-20); Calcium 8.4 mg/dl (8.5-10.1); Creatinine Clr Calc Pharmacy 157.4 ml/min; Est GFR (African American) 138.8 ml/min; Est GFR (Non-African American) 119.8 ml/min; Magnesium 2.4 mg/dl (1.8-2.4); Potassium 4.2 mmol/L (3.5-5.1)
[2021-04-21 08:32] LABS: Albumin Globulin Ratio 1.1 (0.9-2); Total Protein 6.4 gm/dl (6.4-8.2)
[2021-04-21] MEDS ORDERED: PANTOprazole 40 MG TAB PO SCH (09:00)
[2021-04-21] MEDS: HEPARIN SOD 5,000 UNIT/0.5 ML VIAL SQ SCH (09:02)
[2021-04-21] MEDS: NORETHINDRONE 5 MG TAB PO SCH (09:02)
[2021-04-21] MEDS: SERTRALINE HCL 50 MG TABLET PO SCH (09:02)
--- NOTE | 2021-04-21 09:38 | Surgery Progress Note ---
Date of Service April 21, 2021 Assessment & Plan (1) Hyperbilirubinemia: Plan: POD # 1 s/p laparoscopic cholecystectomy POD # 2 s/p ERCP with biliary sphincterotomy -avss -postop pain minimal and controlled - no n/v - t. bili normalized - LFTS continue to improve Plan: Okay from surgical standpoint for discharge discharge instructions reviewed f/u office in 1-2 weeks (2) Jaundice: Plan: resolving (3) Cholelithiasis: Plan: Dr. Vega has seen patient on rounds and agrees with above Admission and Anticipated Discharge Date Admission Date: April 18, 2021 Subjective feeling good soreness at incision sites tolerated clear liquids, no n/v Physical Exam Constitutional: WD/WN, vitals as above no acute distress and not ill appearing Respiratory: normal respiratory effort; no respiratory distress, no labored breathing and no retractions Gastrointestinal (Abdomen): Inspection/Auscultation: abdomen normal to inspection and + abdominal surgical incision (covered with dry dressings); abdomen not distended Percussion/Palpation: + abdomen tender (at incision sites) and abdomen soft; no guarding and abdomen not rigid Skin: no rashes, warm and dry Psychiatric: A+Ox3, euthymic affect Results & Data ([facility]) Vital Signs (Past 12 Hours) Vital Signs Temp Pulse Resp BP Pulse Ox 04/21/21 07:41 36.6 C 69 16 104/68 92 04/21/21 03:15 36.8 C 60 16 114/74 95 04/20/21 22:18 36.8 C 61 16 117/76 95 Laboratory Results 04/21/21 04/21/21 Range/Units 07:12 07:12 WBC 13.50 H (4.8-10.8) K/uL RBC 3.82 L (4.2-5.4) M/uL Hgb 11.6 L (12.0-16.0) g/dL Hct 34.7 L (37-47) % MCV 90.8 (80-100) fL MCH 30.4 (25-34) pg MCHC 33.4 (32-36) g/dL RDW Std Deviation 45.1 (36.4-46.3) fL RDW Coeff of Beau 13.7 (11.5-14.5) % Plt Count 314 (130-400) K/uL MPV 10.6 H (7.4-10.4) fL Immature Gran % (Auto) 0.3 % Neut % (Auto) 79.8 % Lymph % (Auto) 11.0 % [place] % (Auto) 8.9 % Eos % (Auto) 0.0 % Baso % (Auto) 0.0 % Neut # (Auto) 10.77 H (1.4-6.5) K/uL Lymph # (Auto) 1.49 (1.2-3.4) K/uL [place] # (Auto) 1.20 H (0.11-0.59) K/uL Eos # (Auto) 0.00 (0-0.5) K/uL Baso # (Auto) 0.00 (0-0.2) K/uL Immature Gran # (Auto) 0.04 H (0.00-0.02) K/uL Sodium 141 (136-145) mmol/L Potassium 4.2 (3.5-5.1) mmol/L Chloride 111 H (98-107) mmol/L Carbon Dioxide 22 (21-32) mmol/L Anion Gap 9.0 (3-11) BUN 11 D (7-18) mg/dl Creatinine 0.60 (0.6-1.2) mg/dl Est Cr Clr Drug Dosing 157.4 ml/min Est GFR ( Amer) 138.8 ml/min Est GFR (Non-Af Amer) 119.8 ml/min BUN/Creatinine Ratio 17.9 (10-20) Glucose 104 H (70-99) mg/dl Calcium 8.4 L (8.5-10.1) mg/dl Magnesium 2.4 (1.8-2.4) mg/dl Total Bilirubin 1.0 (0.2-1) mg/dl AST 129 H (15-37) U/L ALT 454 H (12-78) U/L Alkaline Phosphatase 146 H (45-117) U/L Total Protein 6.4 (6.4-8.2) gm/dl Albumin 3.4 (3.4-5.0) gm/dl Globulin 3.0 (2.5-4.0) gm/dl Albumin/Globulin Ratio 1.1 (0.9-2)
[2021-04-21] MEDS: ERTAPENEM SODIUM 1,000 MG in SODIUM CHLORIDE 0.9% 50 ML IV SCH (12:27)
--- NOTE | 2021-04-21 12:33 | Discharge Summary ---
Date of Service April 21, 2021 Admission HPI Per Admitting Provider Sandra Saldivar is a 31yo F with a PMHx of anxiety/dep who presents with RUQ pain and who is admitted for management of cholelithiasis without evidence of cholecystitis. Sandra reports her pain initially began in December. Pain was intermittent and in the epigastric/right upper quadrant area and occasionally went through to her back. She was seen by gastroenterology in January and underwent an endoscopy/colonoscopy which was unremarkable. She reports her pain way for approximately 6 to 8 weeks, but returned intermittently in the last month and has been much worse since 3 days ago. She reports 3 days ago her pain jumped to an 11/10 sharp in quality with nausea and nonbloody nonbilious emesis. She denies fever, felt chills with waves of pain. She reports that she became concerned when Monday her urine changed from a normally clear color to a yellow bright orange color. She present to the hospital today when she noticed a change in her skin tone and slight yellowing in the eyes. She notes that fatty foods have made her pain worse, she does not note remitting factors. She denies shortness of breath, chest pain, difficulty breathing. She has not noticed a change in her stool color, denies diarrhea. She has not had night sweats/chills. Medical History: Reviewed Surgical History: Reviewed Family History: Reviewed Allergies: Amoxicillin, rash Social History: Denies tobacco use. Endorses rare social alcohol use, denies recreational drug use. CODE STATUS: Full code Principal Diagnosis Acute cholecystitis, choledocholithiasis Discharge Exam Constitutional WD/WN, vitals as above Eyes + anicteric sclerae Neck trachea midline, no thyromegaly Respiratory normal respiratory effort, lungs clear to auscultation Cardiovascular RRR, no murmur, no edema Chest (Breasts) Chest: normal inspection of chest Gastrointestinal (Abdomen) normal bowel sounds, soft, nontender, no hepatosplenomegaly Musculoskeletal Extremities: extremities normal to inspection; no cyanosis and no clubbing Skin no rashes, warm and dry Neurologic moves all extremities and awake; no focal motor deficits Psychiatric A+Ox3, euthymic affect Lymphatic no lymphedema Discharge Data Allergies Allergy/AdvReac Type Severity Reaction Status Date / Time amoxicillin Allergy Intermediate RASH Unverified 04/18/21 14:41 Consultations 04/18/21 17:35 ED Decision to Admit Stat 04/18/21 20:34 Consult Gastroenterology Routine Consult General Surgery Routine Procedures Performed Operation Date: 04/19/21 07:00 Actual Procedures p Endoscopic Retrograde Cholangiopancreatogram, upper endoscopy/endoscopic ultrasound, sphincterotomy of ampula, balloon sweep(Not Applicable) - Олег Zuleta MD Operation Date: 04/20/21 07:00 Actual Procedures p Laparoscopic Cholecystectomy - Giovanna Vega MD Ordered Studies 04/18/21 13:45 US gallbladder Stat 04/19/21 15:00 FL ERCP biliary ductal Routine 04/19/21 15:40 US upper EUS PACS images Routine Gallbladder Ultrasound 04/18/21 13:45 ULTRASOUND RIGHT UPPER QUADRANT ABDOMEN CLINICAL HISTORY: Right upper quadrant abdominal pain. COMPARISON STUDY: No priors. TECHNIQUE: Real-time, grayscale, and color flow sonography of the right upper quadrant of the abdomen was performed. Images are reviewed in the transverse and longitudinal planes. FINDINGS: Liver: The liver is normal in size and echotexture. There is no intrahepatic biliary ductal dilatation. The main portal vein is patent. Gallbladder: There are small shadowing calcified gallstones. There is no gallbladder wall thickening or pericholecystic fluid. A sonographic Ordoñez's sign is reportedly absent. The common bile duct measures up to 0.6 cm in diameter. Pancreas: Visualized portions of the pancreatic head and body are normal in appearance. The splenic vein is patent. Right kidney: Survey images of the right kidney demonstrate normal size and echotexture. There is no hydronephrosis. Ascites: None. IMPRESSION: Cholelithiasis without sonographic evidence of acute cholecystitis. ACT 112: Negative or not required by law. Electronically signed by: Bk Pelletier M.D. 04/18/2021 4:17 PM Endo Retro Cholangiopancreatogram 04/19/21 15:00 [place] ERCP biliary ductal CLINICAL HISTORY: Duct exploration. COMPARISON STUDY: Abdominal ultrasound 04/18/2021. FLUOROSCOPY TIME: 40 seconds. FINDINGS: 10 fluoroscopic spot images of the right upper quadrant were submitted for review. The ampulla was cannulated and contrast was injected into the common bile duct. A balloon sweep was performed. The common bile duct appears to be normal in course and caliber. IMPRESSION: Fluoroscopy provided for ERCP. ACT 112: Negative or not required by law. Electronically signed by: Mike Antunez M.D. 04/19/2021 6:36 PM Hospital Course (1) Choledocholithiasis: Acute cholecystitis with Choledocholithiasis-with ongoing symptomatic cholelithiasis for 2 months, but presented with jaundice and abdominal pain - No leukocytosis initially but then mild at 11k - Afebrile. BP stable - Tbili 5.1, dbili 4.1 and now continues to be trending downward to 1.0 - AST 286, ALT 648, Alk phos 231 and also now trending downward - Gallbladder US: Liver: The liver is normal in size and echotexture. There is no intrahepatic biliary ductal dilatation. The main portal vein is patent. Gallbladder: There are small shadowing calcified gallstones. There is no gallbladder wall thickening or pericholecystic fluid. A sonographic Ordoñez's sign is reportedly absent. The common bile duct measures up to 0.6 cm in diameter. Pancreas: Visualized portions of the pancreatic head and body are normal in appearance. The splenic vein is patent. - Hcg negative - COVID negative - Gastro: Now status post EGD/ERCP 04/19 with sweeping of sludge from the biliary tree and duct and biliary sphincterotomy. EGD with single area of ectopic gastric mucosa in the upper third of esophagus, otherwise normal-no biopsies collected - Gen Surg consultation appreciated-now status post cholecystectomy on 04/20 -tolerating regular diet at time of discharge -dc to home with tylenol and oxycodone prn, colace bid and Miralax -received IV abx but not needed upon discharge -follow LFTs to resolution as outpt in 2 weeks with GI and/or Surgery as she no longer has a PCP (2) Hyperbilirubinemia: 2/2 choledocholithiasis managed as otherwise noted-resolved (3) Jaundice: as above (4) Anxiety: Anxiety/panic attacks Patient was on p.o. Ativan as needed for panic attacks with daily sertraline Continue sertraline Ativan converted to IV while npo but will now revert back to p.o. (5) Endometriosis: Endometriosis-no acute issues Continue norethindrone 5 mg every morning (6) GERD (gastroesophageal reflux disease): continue po PPI DVT prophylaxis: Heparin subcu, SCDs Disposition: stable for dc to home Encouraged f/u with new PCP-she is looking for a new one Total Time Total Time Spent Total Time Spent (In Minutes): 35 min Discharge Plan Discharge Items Patient Disposition: Home - Self-Care Reason For Visit: CHOLELITHIASIS Discharge Diagnosis: Choledocholithiasis, cholelithiasis, acute choecystitis Condition on Discharge: Good Activity: As commented below Non-emergency contact: Primary Care Provider, Surgeon and [employer]aker Tractor Driver Call non-emergency contact if: you have any medication questions, your symptoms worsen, your pain is not controlled, your pain is worsening, your pain is unusual for you, your pain is concerning for you, you have a fever, your temperature is above 101, your wound has increased redness, your wound has increased drainage and your wound pain has increased Follow-up/Referrals: PT,DECLINED [Primary Care Provider] - Diet: Regular Addtl Attending Provider Instructions: You were admitted with gallstones and bile sludge in your common bile duct causing elevated liver tests. You had an ERCP to remove the bile sludge and then had your gallbladder removed surgically. Please follow up with your PCP or GI doctor as well as the Surgeon and have your liver blood work repeated in 2 weeks to ensure everything is returning to normal. It was a pleasure taking care of you! -Elizabeth Marquez M.D. Addtl Advertising Operations Coordinator Provider Instructions: Post-Surgical ~Discharge Instructions Activity Recommendations: - lifting limitation: (25 pounds for 4 weeks), - exercise/sex/sports limit: (nonstrenuous for 2 weeks), - driving or machine use limit: (none for 1 week or until pain free and no longer taking narcotic pain medication), - Shower/bathe limit: (december shower beginning Monday) Diet: - Resume previous diet SPECIAL CARE INSTRUCTIONS: - May shower on Monday, sponge bath and wash hair in meantime. Let water run over area and pat dry. - Leave steri strips on for one week and then remove. - Call the surgeon's office with any questions or concerns - - (ex. temperature higher than 101 degrees F, excessive bleeding or pain). MEDICATIONS: - Resume previous medications unless instructed otherwise by your surgeon. - Extra strength Tylenol as needed for mild to moderate pain -650 mg every 6 hours as needed - Oxycodone 1 tab every 4 hours, as needed for moderate to severe pain - Recommend stool softener (Colace) while taking narcotic pain medication to prevent constipation FOLLOW UP VISIT: - If not already scheduled, please call the office to schedule a two week follow-up appointment. Office number Pending Studies at Discharge: Yes Stand-Alone Forms: My [facility] Medications and DC Order Prescriptions: New oxycodone 5 mg tablet 5 mg PO Q4H PRN (Reason: pain) Qty: 5 RF: 0 Continued lorazepam [Ativan] 0.5 mg tablet 0.5 mg sublingual DAILY PRN (Reason: Anxiety) RF: 0 norethindrone acetate [Aygestin] 5 mg tablet 5 mg PO QAM RF: 0 sertraline [Zoloft] 50 mg tablet 50 mg PO QAM RF: 0 esomeprazole magnesium [Nexium 24HR] 20 mg Capsule,Delayed Release(Dr/Ec) 20 mg PO QAM RF: 0 clobetasol [Clobex] 0.05 % spray,non-aerosol 1 applic TOPICAL BID PRN (Reason: psoriasis) RF: 0 Discharge Orders: Discharge Order (Routine); Ordered 04/21/21 Ordered By: Elizabeth Marquez Admission Data Admit Date/Time: 04/18/21 18:15 Attending Provider: Elizabeth Marquez Admit Provider: Zi Pham Primary Care Provider: ERIK,PARUL Other Providers: Zi Pham ; Tor Sanchez ; David Belcher Coding Level of Care Code D/C DAY MANAGEMENT >30 MINS Diagnoses Choledocholithiasis K80.50 Hyperbilirubinemia E80.6 Jaundice R17 Anxiety F41.9 Endometriosis N80.9 GERD (gastroesophageal reflux disease) K21.9
== END 2021-04-21 14:15 | disposition home or self-care (01) | DRG 418 ==
LOC: ED 13:17 → SUATTDRO 18:15 → 3N 18:15
DX: R17 Unspecified jaundice; N80.9 Endometriosis, unspecified; F41.9 Anxiety disorder, unspecified; K80.70 Calculus of gallbladder and bile duct without cholecystitis without obstruction; E80.6 Other disorders of bilirubin metabolism; K21.9 Gastro-esophageal reflux disease without esophagitis